=== PATIENT | male | born 1940 | race American Indian/Alaskan Native ===

== ENCOUNTER 2022-01-18 10:20 | Inpatient (IN) | payer MEDICARE, OTHER ==
--- NOTE | 2022-01-18 11:21 | Emergency Department Report ---
ED General Adult HPI - General Chief complaint: Dyspnea/Respdistress Stated complaint: R1 Time Seen by Provider: 01/18/22 10:57 Source: EMS Mode of arrival: Stretcher Limitations: Other - History of Present Illness Initial comments: The patient presents to the emergency department with a chief complaint of shortness of breath that started this morning. Patient denies any chest pain or abdominal pain. Patient states that his shortness of breath is worse with movement. There is no oxygen use at home. Patient denies currently being on a diuretic but has used diuretics previously Severity scale (0 -10): 0 Consistency: constant Improves with: none Worsens with: none Associated Symptoms: denies other symptoms Treatments Prior to Arrival: none - Related Data Home Medications Medication Instructions Recorded Confirmed Last Taken raNITIdine HCL [Zantac 300 MG TAB] 300 mg PO BID 05/10/16 09/16/19 05/14/16 AtorvaSTATin [Lipitor] 40 mg PO QHS 09/16/19 09/16/19 Unknown Finasteride 5 mg PO DAILY 09/16/19 09/16/19 Unknown Insulin Regular, Human [Novolin R] 0 units SUB-Q BID 09/16/19 09/16/19 Unknown Losartan Potassium 100 mg PO DAILY 09/16/19 09/16/19 Unknown levETIRAcetam [Keppra TAB] 500 mg PO BID 09/16/19 09/16/19 Unknown Previous Rx's Medication Instructions Recorded Last Taken Type Aspirin [Aspirin BABY CHEW TAB] 81 mg PO QDAY #30 tab.chew 04/18/14 05/14/16 Rx Clopidogrel Bisulfate [Plavix] 75 mg PO QDAY #30 tablet 04/18/14 05/14/16 Rx Amiodarone [Cordarone 200 MG TAB] 100 mg PO BID #60 tablet 09/26/19 Unknown Rx Insulin NPH/Regular [NovoLIN 70/30] 22 unit SUB-Q BIDDIAB #2 vial 09/26/19 Unknown Rx Metoprolol [Lopressor TAB] 12.5 mg PO Q8HR #60 tablet 09/26/19 Unknown Rx Allergies Allergy/AdvReac Type Severity Reaction Status Date / Time Penicillins Allergy Swelling Verified 09/16/19 17:16 ED Review of Systems ROS: Stated complaint: R1 Other details as noted in HPI Constitutional: denies: chills, fever Eyes: denies: eye pain, eye discharge, vision change ENT: denies: ear pain, throat pain Respiratory: shortness of breath. denies: cough, wheezing Cardiovascular: denies: chest pain, palpitations Endocrine: no symptoms reported Gastrointestinal: denies: abdominal pain, nausea, diarrhea Genitourinary: denies: urgency, dysuria Musculoskeletal: denies: back pain, joint swelling, arthralgia Skin: denies: rash, lesions Neurological: denies: headache, weakness, paresthesias Psychiatric: denies: anxiety, depression Hematological/Lymphatic: denies: easy bleeding, easy bruising ED Past Medical Hx - Past Medical History Hx Hypertension: Yes Hx CVA: Yes Hx Heart Attack/AMI: Yes Hx Congestive Heart Failure: Yes Hx Diabetes: Yes Hx GERD: Yes Hx Arthritis: Yes Hx Seizures: Yes Hx Psychiatric Treatment: Yes Additional medical history: CAD. hyperlipidemia - Surgical History Hx Coronary Stent: Yes - Social History Smoking Status: Former Smoker Substance Use Type: None - Medications Home Medications: Home Medications Medication Instructions Recorded Confirmed Last Taken Type Aspirin [Aspirin BABY CHEW TAB] 81 mg PO QDAY #30 tab.chew 04/18/14 09/16/19 05/14/16 Rx Clopidogrel Bisulfate [Plavix] 75 mg PO QDAY #30 tablet 04/18/14 09/16/19 05/14/16 Rx raNITIdine HCL [Zantac 300 MG TAB] 300 mg PO BID 05/10/16 09/16/19 05/14/16 Hist ory AtorvaSTATin [Lipitor] 40 mg PO QHS 09/16/19 09/16/19 Unknown History Finasteride 5 mg PO DAILY 09/16/19 09/16/19 Unknown History Insulin Regular, Human [Novolin R] 0 units SUB-Q BID 09/16/19 09/16/19 Unknown History Losartan Potassium 100 mg PO DAILY 09/16/19 09/16/19 Unknown History levETIRAcetam [Keppra TAB] 500 mg PO BID 09/16/19 09/16/19 Unknown History Amiodarone [Cordarone 200 MG TAB] 100 mg PO BID #60 tablet 09/26/19 Unknown Rx Insulin NPH/Regular [NovoLIN 70/30] 22 unit SUB-Q BIDDIAB #2 vial 09/26/19 Unknown Rx Metoprolol [Lopressor TAB] 12.5 mg PO Q8HR #60 tablet 09/26/19 Unknown Rx ED Physical Exam - General Limitations: Other General appearance: alert, in no apparent distress - Head Head exam: Present: atraumatic, normocephalic - Eye Eye exam: Present: normal appearance - ENT ENT exam: Present: mucous membranes moist - Neck Neck exam: Present: normal inspection - Respiratory Respiratory exam: Present: decreased breath sounds. Absent: respiratory distress - Cardiovascular Cardiovascular Exam: Present: regular rate, normal rhythm. Absent: systolic murmur, diastolic murmur, rubs, gallop - GI/Abdominal GI/Abdominal exam: Present: soft, normal bowel sounds. Absent: distended, tende rness - Rectal Rectal exam: Present: deferred - Extremities Exam Extremities exam: Present: other (Bilateral pitting edema) - Back Exam Back exam: Present: normal inspection - Neurological Exam Neurological exam: Present: alert, oriented X3 - Psychiatric Psychiatric exam: Present: normal affect, normal mood - Skin Skin exam: Present: warm, dry, intact, normal color. Absent: rash ED Course Vital Signs 01/18/22 01/18/22 01/18/22 10:31 11:02 12:08 Temperature 97.9 F 98.3 F Pulse Rate 79 52 L 59 L Respiratory 16 22 16 Rate Blood Pressure 150/100 143/68 139/57 [Left] O2 Sat by Pulse 100 98 98 Oximetry 01/18/22 15:49 Temperature Pulse Rate 55 L Respiratory 20 Rate Blood Pressure 133/64 [Left] O2 Sat by Pulse 99 Oximetry ED Medical Decision Making - Lab Data Result diagrams: 01/18/22 11:56 01/18/22 11:40 Lab Results 01/18/22 01/18/22 01/18/22 Range/Units 11:40 11:40 11:56 WBC 9.1 (4.5-11.0) K/mm3 RBC 4.86 (3.65-5.03) M/mm3 Hgb 13.7 (11.8-15.2) gm/dl Hct 42.7 (35.5-45.6) % MCV 88 (84-94) fl MCH 28 (28-32) pg MCHC 32 (32-34) % RDW 14.2 (13.2-15.2) % Plt Count 101 L (140-440) K/mm3 Lymph % (Auto) 16.5 (13.4-35.0) % [place] % (Auto) 13.1 H (0.0-7.3) % Eos % (Auto) 1.1 (0.0-4.3) % Baso % (Auto) 0.3 (0.0-1.8) % Lymph # (Auto) 1.5 (1.2-5.4) K/mm3 [place] # (Auto) 1.2 H (0.0-0.8) K/mm3 Eos # (Auto) 0.1 (0.0-0.4) K/mm3 Baso # (Auto) 0.0 (0.0-0.1) K/mm3 Add Manual Diff Complete Seg Neutrophils % 69.0 (40.0-70.0) % Seg Neutrophils # 6.3 (1.8-7.7) K/mm3 Sodium 139 (137-145) mmol/L Potassium 4.9 (3.6-5.0) mmol/L Chloride 105.0 (98-107) mmol/L Carbon Dioxide 21 L (22-30) mmol/L Anion Gap 18 mmol/L BUN 17 (9-20) mg/dL Creatinine 1.1 (0.8-1.3) mg/dL Estimated GFR > 60 ml/min BUN/Creatinine Ratio 15 % Glucose 225 H (75-100) mg/dL Lactic Acid (0.7-2.0) mmol/L Calcium 8.4 (8.4-10.2) mg/dL Magnesium 1.80 (1.7-2.3) mg/dL Total Bilirubin 1.20 (0.1-1.2) mg/dL AST 19 (5-40) units/L ALT 15 (7-56) units/L Alkaline Phosphatase 86 (35-129) units/L Troponin T < 0.010 (0.00-0.029) ng/mL NT-Pro-B Natriuret Pep 713.6 (0-900) pg/mL Total Protein 6.3 (6.3-8.2) g/dL Albumin 3.8 L (3.9-5) g/dL Albumin/Globulin Ratio 1.5 % 01/18/22 Range/Units 13:56 WBC (4.5-11.0) K/mm3 RBC (3.65-5.03) M/mm3 Hgb (11.8-15.2) gm/dl Hct (35.5-45.6) % MCV (84-94) fl MCH (28-32) pg MCHC (32-34) % RDW (13.2-15.2) % Plt Count (140-440) K/mm3 Lymph % (Auto) (13.4-35.0) % [place] % (Auto) (0.0-7.3) % Eos % (Auto) (0.0-4.3) % Baso % (Auto) (0.0-1.8) % Lymph # (Auto) (1.2-5.4) K/mm3 [place] # (Auto) (0.0-0.8) K/mm3 Eos # (Auto) (0.0-0.4) K/mm3 Baso # (Auto) (0.0-0.1) K/mm3 Add Manual Diff Seg Neutrophils % (40.0-70.0) % Seg Neutrophils # (1.8-7.7) K/mm3 Sodium (137-145) mmol/L Potassium (3.6-5.0) mmol/L Chloride (98-107) mmol/L Carbon Dioxide (22-30) mmol/L Anion Gap mmol/L BUN (9-20) mg/dL Creatinine (0.8-1.3) mg/dL Estimated GFR ml/min BUN/Creatinine Ratio % Glucose (75-100) mg/dL Lactic Acid 1.10 (0.7-2.0) mmol/L Calcium (8.4-10.2) mg/dL Magnesium (1.7-2.3) mg/dL Total Bilirubin (0.1-1.2) mg/dL AST (5-40) units/L ALT (7-56) units/L Alkaline Phosphatase (35-129) units/L Troponin T (0.00-0.029) ng/mL NT-Pro-B Natriuret Pep (0-900) pg/mL Total Protein (6.3-8.2) g/dL Albumin (3.9-5) g/dL Albumin/Globulin Ratio % - EKG Data -: EKG Interpreted by Me - EKG Data 01/18/22 16:34 Poor quality EKG with difficult to find isoelectric point. No ST elevation QTC 419 - Medical Decision Making Initially was not discovered that the patient has been admitted or seen at a hospital within the last 90 days thus Levaquin was only ordered for his pneumonia. After discovering that the patient had been in a medical facility within the last 90 days vancomycin was added Critical care attestation.: If time is entered above; I have spent that time in minutes in the direct care of this critically ill patient, excluding procedure time. ED Disposition Clinical Impression: Pneumonia Disposition: ADMITTED INPATIENT Is pt being admited?: Yes Does the pt Need Aspirin: No Condition: Fair Instructions: Bacterial Pneumonia (ED) Time of Disposition: 16:35
--- NOTE | 2022-01-18 11:59 | XRay Report ---
CHEST 1 VIEW 01/18/2022 10:47 AM INDICATION / CLINICAL INFORMATION: sob. COMPARISON: None available. FINDINGS: SUPPORT DEVICES: None. HEART / MEDIASTINUM: No significant abnormality. LUNGS / PLEURA: Relatively dense infiltrate throughout the right mid/lower zone. Probable small parap neumonic effusion. No pneumothorax. ADDITIONAL FINDINGS: No significant additional findings. IMPRESSION: Large right-sided pneumonia with probable parapneumonic effusion. Recommend follow-up to clearing. Signer Name: James Bonilla MD Signed: 01/18/2022 11:55 AM Workstation Name: [employer]
[2022-01-18 12:24] LABS: Alanine Aminotransferase 15 units/L (7-56); Albumin 3.8 g/dL (3.9-5); BUN/Creatinine Ratio 15; Blood Urea Nitrogen 17 mg/dL (9-20); Calcium 8.4 mg/dL (8.4-10.2); Hemolysis Index 45
[2022-01-18 12:48] LABS: Hematocrit 42.7 % (35.5-45.6); Hemoglobin 13.7 gm/dl (11.8-15.2); Mean Corpuscular HGB Conc 32 % (32-34); Mean Corpuscular Volume 88 fl (84-94); Red Blood Count 4.86 M/mm3 (3.65-5.03); Red Cell Distribution Width 14.2 % (13.2-15.2)
[2022-01-18] MEDS ORDERED: AZITHROMYCIN/NS 500 MG/250 ML 500 MG/250 ML BAG IV ONE (14:00)
[2022-01-18 14:37] LABS: Platelet Count 101 K/mm3 (140-440)
[2022-01-18 14:38] LABS: Basophils % (Auto) 0.3 % (0.0-1.8); Eosinophils % (Auto) 1.1 % (0.0-4.3); Lymphocytes # (Auto) 1.5 K/mm3 (1.2-5.4); Lymphocytes % (Auto) 16.5 % (13.4-35.0); Monocytes # (Auto) 1.2 K/mm3 (0.0-0.8); Monocytes % (Auto) 13.1 % (0.0-7.3)
[2022-01-18 14:39] LABS: Eosinophils # (Auto) 0.1 K/mm3 (0.0-0.4)
--- NOTE | 2022-01-18 15:53 | Cat Scan Report ---
CT chest without contrast INDICATION : pneumonia. TECHNIQUE: Axial imaging performed through the chest without the use of intravenous contrast. All C T scans at this location are performed using CT dose reduction for ALARA by means of automated exposu re control. COMPARISON: Chest x-ray from today FINDINGS: Moderate patchy consolidation throughout the right lung with moderate-sized bilateral laye ring pleural effusions and also mild bibasilar compressive atelectasis. Normal heart size. Mild coronary artery calcification. A few [place] mediastinal/hilar lymph nodes are present with no pathologic adenopathy. Limited imaging of the upper abdomen shows nothing acute. There are degenerative changes in the spine with nothing acute. IMPRESSION: Moderate patchy airspace disease throughout the right lung suggesting pneumonia with mode rate-sized bilateral layering pleural effusions. Signer Name: Vitor Mccain MD Signed: 01/18/2022 3:49 PM Workstation Name: [email or web address]
[2022-01-18] MEDS ORDERED: VANCOMYCIN/NS 1 GM/250 ML 1 GM/250 ML BAG IV ONE (16:06)
[2022-01-18] MEDS ORDERED: ACETAMINOPHEN 325 MG TAB PO PRN ×2 (16:36→19:30)
[2022-01-18] MEDS ORDERED: ONDANSETRON 4 MG/2 ML INJ IV PRN ×2 (16:36→19:30)
[2022-01-18] MEDS ORDERED: MORPHINE 2 MG/1 ML INJ IV PRN (16:36)
--- NOTE | 2022-01-18 19:15 | History and Physical Report ---
History of Present Illness Date of examination: 01/18/22 Date of admission: 01/18/2022 Chief complaint: Shortness of breath since a.m. History of present illness: 81-year-old -[place] male with history of hypertension, insulin- dependent diabetes, seizure disorder per lipidemia comes in and for increasing shortness of breath since a.m. Also cough productive of mucoid sputum. Low- grade fever present. Patient is not on oxygen at home. Oxygen saturations were low in the emergency room and the high 80s. Initially. Improved with nasal cannula oxygen. - Past Medical History --Hypertension: Yes --CVA: Yes --Heart Attack/AMI: Yes --Congestive Heart Failure: Yes --Diabetes: Yes --GERD: Yes --Arthritis: Yes --Seizures: Yes --Psychiatric Treatment: Yes --CAD. hyperlipidemia - Surgical History --Coronary Stent: Yes - Social History --Smoking Status: Former Smoker --Substance Use Type: None Family history --Htn - Medications --Home Medications: Home Medications Medication Instructions Recorded Confirmed Last Taken Type Aspirin [Aspirin BABY CHEW TAB] 81 mg PO QDAY #30 tab.chew 04/18/14 09/16/19 05/14/16 Rx Clopidogrel Bisulfate [Plavix] 75 mg PO QDAY #30 tablet 04/18/14 09/16/19 05/14/16 Rx raNITIdine HCL [Zantac 300 MG TAB] 300 mg PO BID 05/10/16 09/16/19 05/14/16 History AtorvaSTATin [Lipitor] 40 mg PO QHS 09/16/19 09/16/19 Unknown History Finasteride 5 mg PO DAILY 09/16/19 09/16/19 Unknown History Insulin Regular, Human [Novolin R] 0 units SUB-Q BID 09/16/19 09/16/19 Unknown History Losartan Potassium 100 mg PO DAILY 09/16/19 09/16/19 Unknown History levETIRAcetam [Keppra TAB] 500 mg PO BID 09/16/19 09/16/19 Unknown History Amiodarone [Cordarone 200 MG TAB] 100 mg PO BID #60 tablet 09/26/19 Unknown Rx Insulin NPH/Regular [NovoLIN 70/30] 22 unit SUB-Q BIDDIAB #2 vial 09/26/19 Unknown Rx Metoprolol [Lopressor TAB] 12.5 mg PO Q8HR #60 tablet 09/26/19 Unknown Rx Review of Systems ROS: Stated complaint: R1 Other details as noted in HPI Constitutional: denies: chills, fever Eyes: denies: eye pain, eye discharge, vision change ENT: denies: ear pain, throat pain Respiratory: shortness of breath. denies: cough, wheezing Cardiovascular: denies: chest pain, palpitations Endocrine: no symptoms reported Gastrointestinal: denies: abdominal pain, nausea, diarrhea Genitourinary: denies: urgency, dysuria Musculoskeletal: denies: back pain, joint swelling, arthralgia Skin: denies: rash, lesions Neurological: denies: headache, weakness, paresthesias Psychiatric: denies: anxiety, depression Hematological/Lymphatic: denies: easy bleeding, easy bruising Medications and Allergies Allergies Allergy/AdvReac Type Severity Reaction Status Date / Time Penicillins Allergy Swelling Verified 09/16/19 17:16 Home Medications Medication Instructions Recorded Confirmed Last Taken Type Aspirin [Aspirin BABY CHEW TAB] 81 mg PO QDAY #30 tab.chew 04/18/14 09/16/19 05/14/16 Rx Clopidogrel Bisulfate [Plavix] 75 mg PO QDAY #30 tablet 04/18/14 09/16/19 05/14/16 Rx raNITIdine HCL [Zantac 300 MG TAB] 300 mg PO BID 05/10/16 09/16/19 05/14/16 History AtorvaSTATin [Lipitor] 40 mg PO QHS 09/16/19 09/16/19 Unknown History Finasteride 5 mg PO DAILY 09/16/19 09/16/19 Unknown History Insulin Regular, Human [Novolin R] 0 units SUB-Q BID 09/16/19 09/16/19 Unknown History Losartan Potassium 100 mg PO DAILY 09/16/19 09/16/19 Unknown History levETIRAcetam [Keppra TAB] 500 mg PO BID 09/16/19 09/16/19 Unknown History Amiodarone [Cordarone 200 MG TAB] 100 mg PO BID #60 tablet 09/26/19 Unknown Rx Insulin NPH/Regular [NovoLIN 70/30] 22 unit SUB-Q BIDDIAB #2 vial 09/26/19 Unknown Rx Metoprolol [Lopressor TAB] 12.5 mg PO Q8HR #60 tablet 09/26/19 Unknown Rx Active Meds: Active Medications Acetaminophen (Acetaminophen 325 Mg Tab) 650 mg PO Q4H PRN PRN Reason: Pain MILD(1-3)/Fever >100.5/ARMENTA Morphine Sulfate (Morphine 2 Mg/1 Ml Inj) 2 mg IV Q4H PRN PRN Reason: Pain, Moderate (4-6) Ondansetron HCl (Ondansetron 4 Mg/2 Ml Inj) 4 mg IV Q8H PRN PRN Reason: Nausea And Vomiting Sodium Chloride (Sodium Chloride 0.9% 10 Ml Flush Syringe) 10 ml IV BID [place] Sodium Chloride (Sodium Chloride 0.9% 10 Ml Flush Syringe) 10 ml IV PRN PRN PRN Reason: LINE FLUSH Exam - Constitutional Vitals: Temp Pulse Resp BP Pulse Ox 98.3 F 80 14 151/70 98 01/18/22 11:02 01/18/22 17:26 01/18/22 17:26 01/18/22 17:26 01/18/22 17:26 General appearance: Present: mild distress, well-nourished - EENT Eyes: Present: PERRL ENT: hearing intact, clear oral mucosa - Neck Neck: Present: supple, normal ROM - Respiratory Respiratory effort: normal Respiratory: bilateral: CTA, rales, rhonchi - Cardiovascular Heart rate: 70 Rhythm: regular Heart Sounds: Present: S1 & S2. Absent: rub, click - Extremities Extremities: pulses symmetrical, No edema Peripheral Pulses: within normal limits - Abdominal General gastrointestinal: Present: soft, non-tender, non-distended, normal bowel sounds Male genitourinary: Present: normal - Integumentary Integumentary: Present: clear, warm, dry - Musculoskeletal Musculoskeletal: gait normal, strength equal bilaterally - Psychiatric Psychiatric: appropriate mood/affect, intact judgment & insight - Neurologic Neurologic: CNII-XII intact, moves all extremities HEART Score - HEART Score History: Moderately suspicious Age: > 65 Risk factors: > 3 risk factors or hx of atherosclerotic disease Troponin: Troponin T < 0.010 ng/mL (0.00-0.029) 01/18/22 11:40 Troponin: < normal limit - Critical Actions Critical Actions: 0-3 pts:0.9-1.7%risk of adverse cardiac event.Candidate for discharge Results - Labs CBC & Chem 7: 01/19/22 05:16 01/19/22 05:16 Labs: Laboratory Last Values WBC 9.1 K/mm3 (4.5-11.0) 01/18/22 11:56 RBC 4.86 M/mm3 (3.65-5.03) 01/18/22 11:56 Hgb 13.7 gm/dl (11.8-15.2) 01/18/22 11:56 Hct 42.7 % (35.5-45.6) 01/18/22 11:56 MCV 88 fl (84-94) 01/18/22 11:56 MCH 28 pg (28-32) 01/18/22 11:56 MCHC 32 % (32-34) 01/18/22 11:56 RDW 14.2 % (13.2-15.2) 01/18/22 11:56 Plt Count 101 K/mm3 (140-440) L 01/18/22 11:56 Lymph % (Auto) 16.5 % (13.4-35.0) 01/18/22 11:56 [place] % (Auto) 13.1 % (0.0-7.3) H 01/18/22 11:56 Eos % (Auto) 1.1 % (0.0-4.3) 01/18/22 11:56 Baso % (Auto) 0.3 % (0.0-1.8) 01/18/22 11:56 Lymph # (Auto) 1.5 K/mm3 (1.2-5.4) 01/18/22 11:56 [place] # (Auto) 1.2 K/mm3 (0.0-0.8) H 01/18/22 11:56 Eos # (Auto) 0.1 K/mm3 (0.0-0.4) 01/18/22 11:56 Baso # (Auto) 0.0 K/mm3 (0.0-0.1) 01/18/22 11:56 Add Manual Diff Complete 01/18/22 11:56 Seg Neutrophils % 69.0 % (40.0-70.0) 01/18/22 11:56 Seg Neutrophils # 6.3 K/mm3 (1.8-7.7) 01/18/22 11:56 Sodium 139 mmol/L (137-145) 01/18/22 11:40 Potassium 4.9 mmol/L (3.6-5.0) 01/18/22 11:40 Chloride 105.0 mmol/L (98-107) 01/18/22 11:40 Carbon Dioxide 21 mmol/L (22-30) L 01/18/22 11:40 Anion Gap 18 mmol/L 01/18/22 11:40 BUN 17 mg/dL (9-20) 01/18/22 11:40 Creatinine 1.1 mg/dL (0.8-1.3) 01/18/22 11:40 Estimated GFR > 60 ml/min 01/18/22 11:40 BUN/Creatinine Ratio 15 % 01/18/22 11:40 Glucose 225 mg/dL (75-100) H 01/18/22 11:40 Lactic Acid 1.10 mmol/L (0.7-2.0) 01/18/22 13:56 Calcium 8.4 mg/dL (8.4-10.2) 01/18/22 11:40 Magnesium 1.80 mg/dL (1.7-2.3) 01/18/22 11:40 Total Bilirubin 1.20 mg/dL (0.1-1.2) 01/18/22 11:40 AST 19 units/L (5-40) 01/18/22 11:40 ALT 15 units/L (7-56) 01/18/22 11:40 Alkaline Phosphatase 86 units/L (35-129) 01/18/22 11:40 Troponin T < 0.010 ng/mL (0.00-0.029) 01/18/22 11:40 NT-Pro-B Natriuret Pep 713.6 pg/mL (0-900) 01/18/22 11:40 Total Protein 6.3 g/dL (6.3-8.2) 01/18/22 11:40 Albumin 3.8 g/dL (3.9-5) L 01/18/22 11:40 Albumin/Globulin Ratio 1.5 % 01/18/22 11:40 Short CBC 01/18/22 01/19/22 Range/Units 11:56 05:16 WBC 9.1 7.6 (4.5-11.0) K/mm3 Hgb 13.7 13.5 (11.8-15.2) gm/dl Hct 42.7 41.2 (35.5-45.6) % Plt Count 101 L 112 L (140-440) K/mm3 BMP 01/18/22 01/19/22 11:40 05:16 Sodium 139 137 Potassium 4.9 4.8 Chloride 105.0 103.8 Carbon Dioxide 21 L 16 L BUN 17 17 Creatinine 1.1 1.0 Glucose 225 H 243 H Calcium 8.4 8.5 Cardiac Enzymes 01/18/22 01/18/22 Range/Units 11:40 19:08 Troponin T < 0.010 < 0.010 (0.00-0.029) ng/mL Liver Function 01/18/22 01/19/22 Range/Units 11:40 05:16 Total Bilirubin 1.20 1.00 (0.1-1.2) mg/dL AST 19 16 (5-40) units/L ALT 15 14 (7-56) units/L Alkaline Phosphatase 86 90 (35-129) units/L Albumin 3.8 L 3.5 L (3.9-5) g/dL Microbiology: Microbiology 01/18/22 13:56 Peripheral/Venous Blood Culture - Preliminary Culture in Progress 01/18/22 13:56 Peripheral/Venous Blood Culture - Preliminary Culture in Progress - Imaging and Cardiology EKG: report reviewed Chest x-ray: report reviewed Imaging and Cardiology: Chest x-ray Large right-sided pneumonia with probable parapneumonic effusion Recommend follow-up clearing Assessment and Plan Advance Directives: Yes (Full code) VTE prophylaxis?: Chemical Plan of care discussed with patient/family: Yes - Patient Problems (1) Acute respiratory failure with hypoxia Current Visit: Yes Status: Acute Plan to address problem: Patient was hypoxic at the time of admission to the emergency room Patient improved with nasal cannula oxygen Continue oxygen and titrate (2) Right lower lobe pneumonia Current Visit: Yes Status: Acute Plan to address problem: Possible aspiration versus community-acquired pneumonia IV ceftriaxone and IV Zithromax to cover atypicals. DuoNebs as needed. Pulmonary consult requested. (3) IDDM (insulin dependent diabetes mellitus) Current Visit: Yes Status: Chronic Plan to address problem: Continue insulin and coverage. (4) Hypertension Current Visit: No Status: Chronic Qualifiers: Hypertension type: primary hypertension Qualified Code(s): I10 - Essential (primary) hypertension Plan to address problem: Continue home antihypertensives and adjust medications (5) Seizure disorder Current Visit: Yes Status: Chronic Plan to address problem: Continue Keppra (6) BPH (benign prostatic hyperplasia) Current Visit: Yes Status: Chronic Qualifiers: Lower urinary tract symptom presence: symptoms present Plan to address problem: Continue finasteride (7) Malnutrition Current Visit: Yes Status: Chronic Qualifiers: Malnutrition type: protein-calorie malnutrition Protein-calorie malnutrition severity: mild Qualified Code(s): E44.1 - Mild protein-calorie malnutrition Plan to address problem: Dietary supplements requested (8) DVT prophylaxis Current Visit: Yes Status: Acute Plan to address problem: On heparin and GI prophylaxis (9) Advance care planning Current Visit: Yes Status: Acute Plan to address problem: Disease education conducted, care plan discussed, diagnosis discussed and prognosis discussed. Patient acknowledged understanding with care plan. +30 minutes. Patient is full code.
[2022-01-18] MEDS ORDERED: SODIUM CHLORIDE 0.9% 1000 ML 1,000 ML IV SCH (19:30)
[2022-01-18] MEDS ORDERED: METOCLOPRAMIDE 10 MG/2 ML INJ IV PRN (19:33)
[2022-01-18] MEDS ORDERED: oxyCODONE /ACETAMINOPHEN 5-325MG TAB PO PRN (19:33)
[2022-01-18] MEDS ORDERED: AZITHROMYCIN/NS 500 MG/250 ML 500 MG/250 ML BAG IV SCH (20:00)
[2022-01-18] MEDS ORDERED: IPRATROPIUM/ALBUTEROL SULFATE 3 ML AMPUL.NEB IH PRN (20:03)
[2022-01-18] MEDS: cefTRIAXone/NS 2 GM/100 ML 2 GM/100 ML BAG IV SCH (20:36)
[2022-01-18] MEDS: ASPIRIN 81 MG TAB CHEW PO SCH (20:47)
[2022-01-18] MEDS: CLOPIDOGREL 75 MG TAB PO SCH (20:47)
[2022-01-18] MEDS ORDERED: FAMOTIDINE 20 MG/2 ML INJ IV SCH (22:00)
[2022-01-18] MEDS ORDERED: RANITIDINE HCL 300 MG PO SCH (22:00)
[2022-01-18] MEDS ORDERED: INSULIN REGULAR, HUMAN 100 UNITS/1 ML SUB-Q SCH (22:00)
[2022-01-18] MEDS: methylPREDNISolone Sod Succinate 125 MG/2 ML INJ IV SCH (22:58)
[2022-01-19 06:01] LABS: Hematocrit 41.2 % (35.5-45.6); Hemoglobin 13.5 gm/dl (11.8-15.2); Mean Corpuscular HGB Conc 33 % (32-34); Mean Corpuscular Volume 88 fl (84-94); Platelet Count 112 K/mm3 (140-440)
[2022-01-19 06:11] LABS: Alanine Aminotransferase 14 units/L (7-56); Albumin 3.5 g/dL (3.9-5); BUN/Creatinine Ratio 17; Blood Urea Nitrogen 17 mg/dL (9-20); Calcium 8.5 mg/dL (8.4-10.2); Hemolysis Index 13
[2022-01-19 06:59] LABS: Basophils % (Manual) 0 % (0.0-1.8); Eosinophils % (Manual) 0 % (0.0-4.3); Monocytes % (Manual) 0 % (0.0-7.3); Platelet Estimate Consistent w Auto; Total Cells Counted 100
[2022-01-19] MEDS ORDERED: IPRATROPIUM/ALBUTEROL SULFATE 3 ML AMPUL.NEB IH SCH (08:00)
[2022-01-19] MEDS: METOPROLOL TARTRATE 25 MG TAB PO SCH ×4 (08:36→21:55)
[2022-01-19] MEDS: methylPREDNISolone Sod Succinate 125 MG/2 ML INJ IV SCH (08:43)
--- NOTE | 2022-01-19 09:54 | Consultation ---
History of Present Illness Consult date: 01/19/22 Requesting physician: NANETTE FLOWERS Reason for consult: hypoxemia, abnormal CXR/CT History of present illness: 81 y/o male presents with several days of worsening shortness of breath. Per patient has nonproductive cough. No sick contacts. No fever, no shaking chills. Used to smoke 30 years ago. Never been hospitalized for breathing. Has heart issues and has 3-4 + edema. Was on a water pill but the doctors stop ped it per the patient. Remainder of the review is negative. Medications and Allergies Allergies Allergy/AdvReac Type Severity Reaction Status Date / Time Penicillins Allergy Swelling Verified 09/16/19 17:16 Home Medications Medication Instructions Recorded Confirmed Last Taken Type Aspirin [Aspirin BABY CHEW TAB] 81 mg PO QDAY #30 tab.chew 04/18/14 09/16/19 05/14/16 Rx Clopidogrel Bisulfate [Plavix] 75 mg PO QDAY #30 tablet 04/18/14 09/16/19 05/14/16 Rx raNITIdine HCL [Zantac 300 MG TAB] 300 mg PO BID 05/10/16 09/16/19 05/14/16 History AtorvaSTATin [Lipitor] 40 mg PO QHS 09/16/19 09/16/19 Unknown History Finasteride 5 mg PO DAILY 09/16/19 09/16/19 Unknown History Insulin Regular, Human [Novolin R] 0 units SUB-Q BID 09/16/19 09/16/19 Unknown History Losartan Potassium 100 mg PO DAILY 09/16/19 09/16/19 Unknown History levETIRAcetam [Keppra TAB] 500 mg PO BID 09/16/19 09/16/19 Unknown History Amiodarone [Cordarone 200 MG TAB] 100 mg PO BID #60 tablet 09/26/19 Unknown Rx Insulin NPH/Regular [NovoLIN 70/30] 22 unit SUB-Q BIDDIAB #2 vial 09/26/19 Unknown Rx Metoprolol [Lopressor TAB] 12.5 mg PO Q8HR #60 tablet 09/26/19 Unknown Rx Active Meds: Active Medications Acetaminophen (Acetaminophen 325 Mg Tab) 650 mg PO Q4H PRN PRN Reason: Pain MILD(1-3)/Fever >100.5/ARMENTA Albuterol/Ipratropium (Ipratropium/Albuterol Sulfate 3 Ml Ampul.Neb) 1 ampul IH QIDRT [facility] Last Admin: 01/19/22 09:27 Dose: 1 ampul Amiodarone HCl (Amiodarone 200 Mg Tab) 100 mg PO BID [facility] Aspirin (Aspirin 81 Mg Tab Chew) 81 mg PO QDAY [facility] Last Admin: 01/18/22 20:47 Dose: 81 mg Atorvastatin Calcium (Atorvastatin 40 Mg Tab) 40 mg PO QHS [facility] Last Admin: 01/18/22 22:57 Dose: 40 mg Azithromycin (Azithromycin 250 Mg Tab) 500 mg PO QHS [facility] Stop: 01/22/22 22:01 Clopidogrel Bisulfate (Clopidogrel 75 Mg Tab) 75 mg PO QDAY [facility] Last Admin: 01/18/22 20:47 Dose: 75 mg Famotidine (Famotidine 20 Mg Tab) 20 mg PO BID [facility] Finasteride (Finasteride 5 Mg Tab) 5 mg PO DAILY [facility] Sodium Chloride (Nacl 0.9% 1000 Ml) 1,000 mls @ 75 mls/hr IV DIRECT [facility] Stop: 01/19/22 10:00 Ceftriaxone Sodium (Rocephin/Ns 2 Gm/100 Ml) 2 gm in 100 mls @ 200 mls/hr IV Q24HR [facility]; Protocol Stop: 01/22/22 23:59 Last Admin: 01/18/22 20:36 Dose: 200 mls/hr Insulin Human Isoph/Insulin Regular (Insulin Nph/Regular 70/30 Inj) 22 unit SUB-Q BIDDIAB [facility] Insulin Human Regular (Insulin Regular, Human 100 Units/1 Ml) 0 units SUB-Q BIDAC [facility]; Protocol Losartan Potassium (Losartan 50 Mg Tab) 100 mg PO DAILY [facility] Methylprednisolone Sodium Succinate (Methylprednisolone Sod Succinate 125 Mg/2 Ml Inj) 40 mg IV Q8HR [facility] Last Admin: 01/19/22 08:43 Dose: 40 mg Metoclopramide HCl (Metoclopramide 10 Mg/2 Ml Inj) 10 mg IV Q6H PRN PRN Reason: Nausea And Vomiting Metoprolol Tartrate (Metoprolol Tartrate 25 Mg Tab) 12.5 mg PO Q8HR [facility] Last Admin: 01/19/22 08:36 Dose: 12.5 mg Morphine Sulfate (Morphine 2 Mg/1 Ml Inj) 2 mg IV Q4H PRN PRN Reason: Pain, Moderate (4-6) Ondansetron HCl (Ondansetron 4 Mg/2 Ml Inj) 4 mg IV Q8H PRN PRN Reason: Nausea And Vomiting Oxycodone/Acetaminophen (Oxycodone /Acetaminophen 5-325mg Tab) 1 tab PO Q6H PRN PRN Reason: Pain, Moderate (4-6) Sodium Chloride (Sodium Chloride 0.9% 10 Ml Flush Syringe) 10 ml IV BID [facility] Last Admin: 01/18/22 22:58 Dose: 10 ml Sodium Chloride (Sodium Chloride 0.9% 10 Ml Flush Syringe) 10 ml IV PRN PRN PRN Reason: LINE FLUSH Physical Examination Vital signs: Vital Signs Temp Pulse Resp BP Pulse Ox 97.9 F 79 16 150/100 100 01/18/22 10:31 01/18/22 10:31 01/18/22 10:31 01/18/22 10:31 01/18/22 10:31 General appearance: no acute distress, alert, other (obese) Eyes: non-icteric ENT: other (poor dentition) Neck: supple Effort: mildly labored Ascultation: Bilateral: diminished breath sounds Gastrointestinal: other (very distant) Results - Laboratory Findings CBC and BMP: 01/20/22 04:36 01/20/22 04:36 Abnormal lab findings: Abnormal Labs 01/18/22 01/18/22 01/19/22 11:40 11:56 05:16 Plt Count 101 L 112 L [place] % (Auto) 13.1 H [place] # (Auto) 1.2 H Seg Neuts % (Manual) 97.0 H Lymphocytes % (Manual) 3.0 L Lymphocytes # (Manual) 0.2 L Carbon Dioxide 21 L Glucose 225 H Albumin 3.8 L 01/19/22 05:16 Plt Count [place] % (Auto) [place] # (Auto) Seg Neuts % (Manual) Lymphocytes % (Manual) Lymphocytes # (Manual) Carbon Dioxide 16 L Glucose 243 H Albumin 3.5 L - Diagnostic Findings Chest x-ray: image reviewed (right sided airspace disease with small right sided effusion.) CT scan - chest: image reviewed (Consistent with CXR, mild cardiomegaly.) Assessment and Plan 81 y/o male with acute respiratory failure secondary to abnormal CXR consistent with right sided mid lung airspace disease, concerning for pneumonia. Interesting case. no white count, no fever. Differential was normal but was hypoxic on admission per report. All sats in computer above 88%. Started on CAP coverage and steroids. Suggest the following. 1. no prior history of lung disease. Former smoker per H and P. Agree with abx but will hold off steroids for right now. Need to send sputum for culture as well as cyotology. If not able to produce anymore may need to consider bronchoscopy. Incentive boone to bedside. Please consider US guided thoracentesis of right pleural effusion and send for the following: LDH, PROTEIN, Cell count with diff, afb, fungal, glucose, culture as well as cytology. Will continue to follow.
[2022-01-19] MEDS ORDERED: ALBUTEROL 2.5 MG/3 ML NEBU IH PRN (09:58)
[2022-01-19] MEDS: AMIODARONE 200 MG TAB PO SCH ×3 (12:02→21:53)
[2022-01-19] MEDS: cefTRIAXone/NS 2 GM/100 ML 2 GM/100 ML BAG IV SCH (12:02)
[2022-01-19] MEDS: LOSARTAN 50 MG TAB PO SCH ×2 (12:02→12:04)
[2022-01-19] MEDS: INSULIN NPH/REGULAR 70/30 INJ SUB-Q SCH ×2 (12:02→17:25)
[2022-01-19] MEDS: FINASTERIDE 5 MG TAB PO SCH ×2 (12:02→12:04)
[2022-01-19] MEDS: ASPIRIN 81 MG TAB CHEW PO SCH (12:03)
[2022-01-19] MEDS: CLOPIDOGREL 75 MG TAB PO SCH (12:03)
[2022-01-19] MEDS: INSULIN REGULAR, HUMAN 100 UNITS/1 ML SUB-Q SCH ×2 (12:03→17:28)
[2022-01-19] MEDS: FAMOTIDINE 20 MG TAB PO SCH ×2 (12:03→21:53)
--- NOTE | 2022-01-19 13:59 | Electrocardiograph Report ---
[facility] Test Date: 2022-01-18 Test Time: 12:56:22 Pat Name: CARLENE SANCHEZ Department: Room: A376 Gender: M Analysis Tester: BUBBA : 1940 Requested By: SINDI SORTO Order Number: [id number] Reading MD: Jason Botello Measurements Intervals [place] Rate: 58 P: IA: QRS: -30 QRSD: 97 T: -5 QT: 419 QTc: 414 Interpretive Statements Very poor quality ECG Sinus bradycardia Left ventricular per trophy Poor R wave progression Nonspecific T wave abnormality No previous ECG available for comparison Electronically Signed On 01-19-2022 13:59:40 EDT by Jason Botello
--- NOTE | 2022-01-19 19:51 | Progress Note ---
Assessment and Plan - Patient Problems (1) Acute respiratory failure with hypoxia Current Visit: Yes Status: Acute Plan to address problem: Patient was hypoxic at the time of admission to the emergency room Patient improved with nasal cannula oxygen Continue oxygen and titrate (2) Right lower lobe pneumonia Current Visit: Yes Status: Acute Plan to address problem: Possible aspiration versus community-acquired pneumonia IV ceftriaxone and IV Zithromax to cover atypicals. DuoNebs as needed. Pulmonary consult appreciated Pleural fluid for cytology Bronchoscopy if necessary (3) IDDM (insulin dependent diabetes mellitus) Current Visit: Yes Status: Chronic Plan to address problem: Continue insulin and coverage. (4) Hypertension Current Visit: No Status: Chronic Qualifiers: Hypertension type: primary hypertension Qualified Code(s): I10 - Essential (primary) hypertension Plan to address problem: Continue home antihypertensives and adjust medications (5) Seizure disorder Current Visit: Yes Status: Chronic Plan to address problem: Continue Keppra (6) BPH (benign prostatic hyperplasia) Current Visit: Yes Status: Chronic Qualifiers: Lower urinary tract symptom presence: symptoms present Plan to address problem: Continue finasteride (7) Malnutrition Current Visit: Yes Status: Chronic Qualifiers: Malnutrition type: protein-calorie malnutrition Protein-calorie malnutrition severity: mild Qualified Code(s): E44.1 - Mild protein-calorie malnutrition Plan to address problem: Dietary supplements requested (8) DVT prophylaxis Current Visit: Yes Status: Acute Plan to address problem: On heparin and GI prophylaxis (9) Advance care planning Current Visit: Yes Status: Acute Plan to address problem: Disease education conducted, care plan discussed, diagnosis discussed and prognosis discussed. Patient acknowledged understanding with care plan. +30 minutes. Patient is full code. Subjective Date of service: 01/19/22 Principal diagnosis: Acute respiratory failure with hypoxia, right lower lobe pneumonia Interval history: 81-year-old -[place] male with history of hypertension, insulin- dependent diabetes, seizure disorder per lipidemia comes in and for increasing shortness of breath since a.m. Also cough productive of mucoid sputum. Low- grade fever present. Patient is not on oxygen at home. Oxygen saturations were low in the emergency room and the high 80s. Initially. Improved with nasal cannula oxygen. 01/19/2022 Shortness of breath present Pulmonary consult appreciated Objective - Constitutional Vitals: Vital Signs - 12hr 01/19/22 01/19/22 01/19/22 08:36 08:44 09:29 Temperature 98.9 F Pulse Rate 92 H 87 Pulse Rate [ 65 Anterior] Pulse Rate [ 68 Posterior] Respiratory 15 Rate Respiratory 18 Rate [Anterior] Respiratory 18 Rate [Posterior ] Blood Pressure 127/51 Blood Pressure 146/52 [Left] O2 Sat by Pulse 97 Oximetry General appearance: Present: no acute distress, well-nourished - EENT Eyes: PERRL, EOM intact ENT: hearing intact, clear oral mucosa Ears: bilateral: normal - Neck Neck: supple, normal ROM - Respiratory Respiratory effort: normal Respiratory: bilateral: CTA, rhonchi, wheezing - Breasts Breasts: normal - Cardiovascular Heart rate: 98 Rhythm: regular Heart Sounds: Present: S1 & S2. Absent: gallop, rub Extremities: pulses intact, No edema, normal color, Full ROM - Gastrointestinal General gastrointestinal: Present: soft, non-tender, non-distended, normal bowel sounds - Genitourinary Male genitourinary: normal - Integumentary Integumentary: clear, warm, dry - Musculoskeletal Musculoskeletal: 1, strength equal bilaterally - Neurologic Neurologic: moves all extremities - Psychiatric Psychiatric: memory intact, appropriate mood/affect, intact judgment & insight - Labs CBC & Chem 7: 01/19/22 05:16 01/19/22 05:16 Labs: Abnormal lab results 01/19/22 01/19/22 01/19/22 Range/Units 05:16 05:16 17:17 Plt Count 112 L (140-440) K/mm3 Seg Neuts % (Manual) 97.0 H (40.0-70.0) % Lymphocytes % (Manual) 3.0 L (13.4-35.0) % Lymphocytes # (Manual) 0.2 L (1.2-5.4) K/mm3 Carbon Dioxide 16 L (22-30) mmol/L Glucose 243 H (75-100) mg/dL POC Glucose 379 H (70-105) mg/dL Albumin 3.5 L (3.9-5) g/dL HEART Score - HEART Score Age: > 65 Risk factors: > 3 risk factors or hx of atherosclerotic disease Troponin: Troponin T < 0.010 ng/mL (0.00-0.029) 01/18/22 19:08 Troponin: < normal limit - Critical Actions Critical Actions: 0-3 pts:0.9-1.7%risk of adverse cardiac event.Candidate for discharge
[2022-01-19] MEDS: IPRATROPIUM/ALBUTEROL SULFATE 3 ML AMPUL.NEB IH SCH ×2 (20:53→23:25)
[2022-01-19] MEDS: AZITHROMYCIN 250 MG TAB PO SCH (21:54)
[2022-01-20 05:22] LABS: Basophils % (Auto) 0.1 % (0.0-1.8); Hemoglobin 11.3 gm/dl (11.8-15.2); Lymphocytes # (Auto) 0.6 K/mm3 (1.2-5.4); Lymphocytes % (Auto) 5.9 % (13.4-35.0); Mean Corpuscular HGB Conc 33 % (32-34); Mean Corpuscular Volume 87 fl (84-94); Monocytes # (Auto) 1.1 K/mm3 (0.0-0.8); Monocytes % (Auto) 10.6 % (0.0-7.3); Platelet Count 118 K/mm3 (140-440); Red Blood Count 3.91 M/mm3 (3.65-5.03); Red Cell Distribution Width 13.7 % (13.2-15.2)
[2022-01-20] MEDS: METOPROLOL TARTRATE 25 MG TAB PO SCH ×3 (05:30→21:14)
[2022-01-20 05:37] LABS: Alanine Aminotransferase 15 units/L (7-56); Albumin 3.5 g/dL (3.9-5); BUN/Creatinine Ratio 22; Blood Urea Nitrogen 28 mg/dL (9-20); Calcium 8.4 mg/dL (8.4-10.2); Hemolysis Index 5
[2022-01-20] MEDS: INSULIN NPH/REGULAR 70/30 INJ SUB-Q SCH ×2 (08:40→18:22)
[2022-01-20] MEDS: IPRATROPIUM/ALBUTEROL SULFATE 3 ML AMPUL.NEB IH SCH ×3 (08:55→20:25)
[2022-01-20] MEDS ORDERED: METOCLOPRAMIDE 10 MG/2 ML INJ IV PRN (11:00)
[2022-01-20] MEDS: INSULIN REGULAR, HUMAN 100 UNITS/1 ML SUB-Q SCH ×2 (11:09→18:21)
[2022-01-20] MEDS: AMIODARONE 200 MG TAB PO SCH ×2 (11:11→21:14)
[2022-01-20] MEDS: ASPIRIN 81 MG TAB CHEW PO SCH (11:11)
[2022-01-20] MEDS: LOSARTAN 50 MG TAB PO SCH (11:12)
[2022-01-20] MEDS: FAMOTIDINE 20 MG TAB PO SCH ×2 (11:13→21:14)
[2022-01-20] MEDS: FINASTERIDE 5 MG TAB PO SCH (11:13)
[2022-01-20] MEDS: CLOPIDOGREL 75 MG TAB PO SCH (11:13)
[2022-01-20] MEDS: cefTRIAXone/NS 2 GM/100 ML 2 GM/100 ML BAG IV SCH (11:15)
--- NOTE | 2022-01-20 15:42 | Progress Note ---
Assessment and Plan 81 y/o male with acute respiratory failure secondary to abnormal CXR consistent with right sided mid lung airspace disease, concerning for pneumonia. 01/20/22: Suggest echo, will order. Will also order US guided thoracentesis with labs. Repeat CXR post thora. Interesting case. no white count, no fever. Differential was normal but was hypoxic on admission per report. All sats in computer above 88%. Started on CAP coverage and steroids. Suggest the following. 1. no prior history of lung disease. Former smoker per H and P. Agree with abx but will hold off steroids for right now. Need to send sputum for culture as well as cyotology. If not able to produce anymore may need to consider bronchoscopy. Incentive boone to bedside. Please consider US guided thoracentesis of right pleural effusion and send for the following: LDH, PROTEIN, Cell count with diff, afb, fungal, glucose, culture as well as cytology. Will continue to follow. Subjective Date of service: 01/20/22 Principal diagnosis: Acute respiratory failure with hypoxia, right lower lobe pneumonia Interval history: Weaned to room air. Good sats. Feels better. Objective Vital Signs - 12hr 01/20/22 01/20/22 01/20/22 03:46 09:36 11:12 Temperature 98.0 F 98.4 F Pulse Rate 65 67 67 Pulse Rate [ Anterior] Pulse Rate [ Posterior] Respiratory 16 14 Rate Respiratory Rate [Anterior] Respiratory Rate [Posterior ] Blood Pressure 135/64 148/75 148/75 O2 Sat by Pulse 96 98 Oximetry 01/20/22 14:00 Temperature Pulse Rate Pulse Rate [ 58 L Anterior] Pulse Rate [ 57 L Posterior] Respiratory Rate Respiratory 18 Rate [Anterior] Respiratory 20 Rate [Posterior ] Blood Pressure O2 Sat by Pulse Oximetry Constitutional: no acute distress, alert, other (obese) Eyes: non-icteric ENT: other (poor dentition) Neck: supple Effort: mildly labored Ascultation: Bilateral: diminished breath sounds Gastrointestinal: other (very distant) CBC and BMP: 01/20/22 04:36 01/20/22 04:36 Abnormal lab findings: Abnormal Labs 01/18/22 01/18/22 01/19/22 11:40 11:56 05:16 Hgb Hct Plt Count 101 L 112 L Lymph % (Auto) [place] % (Auto) 13.1 H Lymph # (Auto) [place] # (Auto) 1.2 H Seg Neutrophils % Seg Neuts % (Manual) 97.0 H Lymphocytes % (Manual) 3.0 L Seg Neutrophils # Lymphocytes # (Manual) 0.2 L Carbon Dioxide 21 L BUN Glucose 225 H POC Glucose Total Protein Albumin 3.8 L 01/19/22 01/19/22 01/19/22 05:16 17:17 21:26 Hgb Hct Plt Count Lymph % (Auto) [place] % (Auto) Lymph # (Auto) [place] # (Auto) Seg Neutrophils % Seg Neuts % (Manual) Lymphocytes % (Manual) Seg Neutrophils # Lymphocytes # (Manual) Carbon Dioxide 16 L BUN Glucose 243 H POC Glucose 379 H 340 H Total Protein Albumin 3.5 L 01/20/22 01/20/22 01/20/22 04:36 04:36 07:38 Hgb 11.3 L Hct 34.0 L D Plt Count 118 L Lymph % (Auto) 5.9 L [place] % (Auto) 10.6 H Lymph # (Auto) 0.6 L [place] # (Auto) 1.1 H Seg Neutrophils % 83.4 H Seg Neuts % (Manual) Lymphocytes % (Manual) Seg Neutrophils # 8.5 H Lymphocytes # (Manual) Carbon Dioxide 21 L BUN 28 H Glucose 190 H POC Glucose 160 H Total Protein 5.6 L Albumin 3.5 L 01/20/22 12:08 Hgb Hct Plt Count Lymph % (Auto) [place] % (Auto) Lymph # (Auto) [place] # (Auto) Seg Neutrophils % Seg Neuts % (Manual) Lymphocytes % (Manual) Seg Neutrophils # Lymphocytes # (Manual) Carbon Dioxide BUN Glucose POC Glucose 217 H Total Protein Albumin
[2022-01-20] MEDS: AZITHROMYCIN 250 MG TAB PO SCH (21:13)
[2022-01-21 00:10] LABS: Alanine Aminotransferase 16 units/L (7-56); Albumin 3.1 g/dL (3.9-5)
[2022-01-21 00:16] LABS: Bilirubin,Direct < 0.2 mg/dL (0-0.2)
[2022-01-21] MEDS: METOPROLOL TARTRATE 25 MG TAB PO SCH ×3 (06:03→22:20)
--- NOTE | 2022-01-21 07:14 | Progress Note ---
Assessment and Plan - Patient Problems (1) Acute respiratory failure with hypoxia Current Visit: Yes Status: Acute Plan to address problem: Patient was hypoxic at the time of admission to the emergency room Patient improved with nasal cannula oxygen Continue oxygen and titrate (2) Right lower lobe pneumonia Current Visit: Yes Status: Acute Plan to address problem: Possible aspiration versus community-acquired pneumonia IV ceftriaxone and IV Zithromax to cover atypicals. DuoNebs as needed. Pulmonary consult appreciated Pleural fluid for cytology Bronchoscopy if necessary (3) IDDM (insulin dependent diabetes mellitus) Current Visit: Yes Status: Chronic Plan to address problem: Continue insulin and coverage. (4) Hypertension Current Visit: No Status: Chronic Qualifiers: Hypertension type: primary hypertension Qualified Code(s): I10 - Essential (primary) hypertension Plan to address problem: Continue home antihypertensives and adjust medications (5) Seizure disorder Current Visit: Yes Status: Chronic Plan to address problem: Continue Keppra (6) BPH (benign prostatic hyperplasia) Current Visit: Yes Status: Chronic Qualifiers: Lower urinary tract symptom presence: symptoms present Plan to address problem: Continue finasteride (7) Malnutrition Current Visit: Yes Status: Chronic Qualifiers: Malnutrition type: protein-calorie malnutrition Protein-calorie malnutrition severity: mild Qualified Code(s): E44.1 - Mild protein-calorie malnutrition Plan to address problem: Dietary supplements requested (8) DVT prophylaxis Current Visit: Yes Status: Acute Plan to address problem: On heparin and GI prophylaxis (9) Advance care planning Current Visit: Yes Status: Acute Plan to address problem: Disease education conducted, care plan discussed, diagnosis discussed and prognosis discussed. Patient acknowledged understanding with care plan. +30 minutes. Patient is full code. Subjective Date of service: 01/20/22 Principal diagnosis: Acute respiratory failure with hypoxia, right lower lobe pneumonia Interval history: 81-year-old -[place] male with history of hypertension, insulin- dependent diabetes, seizure disorder per lipidemia comes in and for increasing shortness of breath since a.m. Also cough productive of mucoid sputum. Low- grade fever present. Patient is not on oxygen at home. Oxygen saturations were low in the emergency room and the high 80s. Initially. Improved with nasal cannula oxygen. 01/19/2022 Shortness of breath present Pulmonary consult appreciated Objective - Constitutional Vitals: Vital Signs - 12hr 01/20/22 01/20/22 01/21/22 20:25 20:31 00:29 Temperature 98.4 F Pulse Rate 60 Pulse Rate [ 69 Anterior] Pulse Rate [ 67 Posterior] Respiratory 18 Rate Respiratory 18 Rate [Anterior] Respiratory 18 Rate [Posterior ] Blood Pressure 126/62 O2 Sat by Pulse 97 96 Oximetry General appearance: Present: no acute distress, well-nourished - EENT Eyes: PERRL, EOM intact ENT: hearing intact, clear oral mucosa Ears: bilateral: normal - Neck Neck: supple, normal ROM - Respiratory Respiratory effort: normal Respiratory: bilateral: CTA - Breasts Breasts: normal - Cardiovascular Rhythm: regular Heart Sounds: Present: S1 & S2. Absent: gallop, rub Extremities: pulses intact, No edema, normal color, Full ROM - Gastrointestinal General gastrointestinal: Present: soft, non-tender, non-distended, normal bowel sounds - Genitourinary Male genitourinary: normal - Integumentary Integumentary: clear, warm, dry - Musculoskeletal Musculoskeletal: 1, strength equal bilaterally - Neurologic Neurologic: moves all extremities - Psychiatric Psychiatric: memory intact, appropriate mood/affect, intact judgment & insight - Labs CBC & Chem 7: 01/20/22 04:36 01/20/22 04:36 Labs: Abnormal lab results 01/20/22 01/20/22 01/20/22 Range/Units 07:38 12:08 17:52 POC Glucose 160 H 217 H 214 H (70-105) mg/dL Lactate Dehydrogenase (91-180) units/L Total Protein (6.3-8.2) g/dL Albumin (3.9-5) g/dL 01/20/22 01/20/22 Range/Units 22:05 23:23 POC Glucose 213 H (70-105) mg/dL Lactate Dehydrogenase 241 H (91-180) units/L Total Protein 5.4 L (6.3-8.2) g/dL Albumin 3.1 L (3.9-5) g/dL HEART Score - HEART Score Age: > 65 Risk factors: > 3 risk factors or hx of atherosclerotic disease Troponin: Troponin T < 0.010 ng/mL (0.00-0.029) 01/18/22 19:08 Troponin: < normal limit - Critical Actions Critical Actions: 0-3 pts:0.9-1.7%risk of adverse cardiac event.Candidate for discharge
[2022-01-21] MEDS ORDERED: DEXTROSE 50% IN WATER (25GM) 50 ML SYRINGE IV ONE (07:50)
[2022-01-21] MEDS: INSULIN REGULAR, HUMAN 100 UNITS/1 ML SUB-Q SCH ×2 (08:03→19:06)
[2022-01-21] MEDS: INSULIN NPH/REGULAR 70/30 INJ SUB-Q SCH ×2 (08:10→19:06)
[2022-01-21] MEDS: IPRATROPIUM/ALBUTEROL SULFATE 3 ML AMPUL.NEB IH SCH ×3 (08:16→20:40)
[2022-01-21] MEDS: cefTRIAXone/NS 2 GM/100 ML 2 GM/100 ML BAG IV SCH (11:09)
[2022-01-21] MEDS: AMIODARONE 200 MG TAB PO SCH ×2 (11:14→22:20)
[2022-01-21] MEDS: LOSARTAN 50 MG TAB PO SCH (11:14)
[2022-01-21] MEDS: ASPIRIN 81 MG TAB CHEW PO SCH (11:16)
[2022-01-21] MEDS: CLOPIDOGREL 75 MG TAB PO SCH (11:16)
[2022-01-21] MEDS: FINASTERIDE 5 MG TAB PO SCH (11:16)
[2022-01-21] MEDS: FAMOTIDINE 20 MG TAB PO SCH ×2 (11:16→22:20)
--- NOTE | 2022-01-21 14:41 | Progress Note ---
Assessment and Plan 81 y/o male with acute respiratory failure secondary to abnormal CXR consistent with right sided mid lung airspace disease, concerning for pneumonia. 01/21/22: Hopeful thora can be done. Follow up echo 01/20/22: Suggest echo, will order. Will also order US guided thoracentesis with labs. Repeat CXR post thora. Interesting case. no white count, no fever. Differential was normal but was hypoxic on admission per report. All sats in computer above 88%. Started on CAP coverage and steroids. Suggest the following. 1. no prior history of lung disease. Former smoker per H and P. Agree with abx but will hold off steroids for right now. Need to send sputum for culture as well as cyotology. If not able to produce anymore may need to consider bronchoscopy. Incentive boone to bedside. Please consider US guided thoracentesis of right pleural effusion and send for the following: LDH, PROTEIN, Cell count with diff, afb, fungal, glucose, culture as well as cytology. Will continue to follow. Subjective Date of service: 01/21/22 Principal diagnosis: Acute respiratory failure with hypoxia, right lower lobe pneumonia Interval history: no acute events. thora not done. Ordered echo today. back on oxygen therapy. Objective Vital Signs - 12hr 01/21/22 01/21/22 01/21/22 06:31 08:19 11:14 Temperature 97.8 F Pulse Rate 55 L 78 Pulse Rate [ 83 Posterior] Respiratory 18 Rate Respiratory 20 Rate [Posterior ] Blood Pressure 138/66 O2 Sat by Pulse 98 Oximetry Constitutional: no acute distress, alert, other (obese) Eyes: non-icteric ENT: other (poor dentition) Neck: supple Effort: mildly labored Ascultation: Bilateral: diminished breath sounds Gastrointestinal: other (very distant) CBC and BMP: 01/20/22 04:36 01/20/22 04:36 Abnormal lab findings: Abnormal Labs 01/18/22 01/18/22 01/19/22 11:40 11:56 05:16 Hgb Hct Plt Count 101 L 112 L Lymph % (Auto) [place] % (Auto) 13.1 H Lymph # (Auto) [place] # (Auto) 1.2 H Seg Neutrophils % Seg Neuts % (Manual) 97.0 H Lymphocytes % (Manual) 3.0 L Seg Neutrophils # Lymphocytes # (Manual) 0.2 L Carbon Dioxide 21 L BUN Glucose 225 H POC Glucose Lactate Dehydrogenase Total Protein Albumin 3.8 L 01/19/22 01/19/22 01/19/22 05:16 17:17 21:26 Hgb Hct Plt Count Lymph % (Auto) [place] % (Auto) Lymph # (Auto) [place] # (Auto) Seg Neutrophils % Seg Neuts % (Manual) Lymphocytes % (Manual) Seg Neutrophils # Lymphocytes # (Manual) Carbon Dioxide 16 L BUN Glucose 243 H POC Glucose 379 H 340 H Lactate Dehydrogenase Total Protein Albumin 3.5 L 01/20/22 01/20/22 01/20/22 04:36 04:36 07:38 Hgb 11.3 L Hct 34.0 L D Plt Count 118 L Lymph % (Auto) 5.9 L [place] % (Auto) 10.6 H Lymph # (Auto) 0.6 L [place] # (Auto) 1.1 H Seg Neutrophils % 83.4 H Seg Neuts % (Manual) Lymphocytes % (Manual) Seg Neutrophils # 8.5 H Lymphocytes # (Manual) Carbon Dioxide 21 L BUN 28 H Glucose 190 H POC Glucose 160 H Lactate Dehydrogenase Total Protein 5.6 L Albumin 3.5 L 01/20/22 01/20/22 01/20/22 12:08 17:52 22:05 Hgb Hct Plt Count Lymph % (Auto) [place] % (Auto) Lymph # (Auto) [place] # (Auto) Seg Neutrophils % Seg Neuts % (Manual) Lymphocytes % (Manual) Seg Neutrophils # Lymphocytes # (Manual) Carbon Dioxide BUN Glucose POC Glucose 217 H 214 H 213 H Lactate Dehydrogenase Total Protein Albumin 01/20/22 01/21/22 23:23 07:42 Hgb Hct Plt Count Lymph % (Auto) [place] % (Auto) Lymph # (Auto) [place] # (Auto) Seg Neutrophils % Seg Neuts % (Manual) Lymphocytes % (Manual) Seg Neutrophils # Lymphocytes # (Manual) Carbon Dioxide BUN Glucose POC Glucose 51 L Lactate Dehydrogenase 241 H Total Protein 5.4 L Albumin 3.1 L
[2022-01-21] MEDS: AZITHROMYCIN 250 MG TAB PO SCH (22:20)
[2022-01-22] MEDS: METOPROLOL TARTRATE 25 MG TAB PO SCH ×3 (06:41→23:24)
[2022-01-22] MEDS: INSULIN REGULAR, HUMAN 100 UNITS/1 ML SUB-Q SCH ×2 (07:30→16:45)
[2022-01-22] MEDS: IPRATROPIUM/ALBUTEROL SULFATE 3 ML AMPUL.NEB IH SCH ×3 (08:08→21:24)
[2022-01-22] MEDS: ASPIRIN 81 MG TAB CHEW PO SCH (10:16)
[2022-01-22] MEDS: INSULIN NPH/REGULAR 70/30 INJ SUB-Q SCH ×2 (10:16→17:30)
[2022-01-22] MEDS: FINASTERIDE 5 MG TAB PO SCH (10:16)
[2022-01-22] MEDS: LOSARTAN 50 MG TAB PO SCH (10:16)
[2022-01-22] MEDS: cefTRIAXone/NS 2 GM/100 ML 2 GM/100 ML BAG IV SCH (10:16)
[2022-01-22] MEDS: CLOPIDOGREL 75 MG TAB PO SCH (10:16)
[2022-01-22] MEDS: FAMOTIDINE 20 MG TAB PO SCH ×2 (10:17→23:28)
[2022-01-22] MEDS: AMIODARONE 200 MG TAB PO SCH ×2 (10:17→23:28)
[2022-01-22] MEDS ORDERED: FUROSEMIDE 20 MG/2 ML INJ IV SCH ×2 (12:17→13:30)
--- NOTE | 2022-01-22 12:19 | Progress Note ---
Assessment and Plan 81 y/o male with acute respiratory failure secondary to abnormal CXR consistent with right sided mid lung airspace disease, concerning for pneumonia. 01/22/22: Will give lasix 20mg IV x1 today given diastolic dysfunction seen on echo. Repeat CXR tomorrow. Spoke with Rads, not able to reach any family to obtain consent to get thora. Continue abx therapy. 01/21/22: Hopeful thora can be done. Follow up echo 01/20/22: Suggest echo, will order. Will also order US guided thoracentesis with labs. Repeat CXR post thora. Interesting case. no white count, no fever. Differential was normal but was hypoxic on admission per report. All sats in computer above 88%. Started on CAP coverage and steroids. Suggest the following. 1. no prior history of lung disease. Former smoker per H and P. Agree with abx but will hold off steroids for right now. Need to send sputum for culture as well as cyotology. If not able to produce anymore may need to consider bronchoscopy. Incentive boone to bedside. Please consider US guided t horacentesis of right pleural effusion and send for the following: LDH, PROTEIN, Cell count with diff, afb, fungal, glucose, culture as well as cytology. Will continue to follow. Subjective Date of service: 01/22/22 Principal diagnosis: Acute respiratory failure with hypoxia, right lower lobe pneumonia Interval history: echo back showing diastolic dysfunction. No mention of RVSP so unknown if pulm HTN present. No mention of cor pulmonale as well. Still on 2 liters NC Objective Vital Signs - 12hr 01/22/22 01/22/22 06:41 08:08 Pulse Rate 62 Pulse Rate [ 69 Anterior] Pulse Rate [ 70 Posterior] Respiratory 17 Rate [Anterior] Respiratory 19 Rate [Posterior ] Blood Pressure 141/69 Constitutional: no acute distress, alert, other (obese) Eyes: non-icteric ENT: other (poor dentition) Neck: supple Effort: mildly labored Ascultation: Bilateral: diminished breath sounds Gastrointestinal: other (very distant) CBC and BMP: 01/20/22 04:36 01/20/22 04:36 Abnormal lab findings: Abnormal Labs 01/18/22 01/18/22 01/19/22 11:40 11:56 05:16 Hgb Hct Plt Count 101 L 112 L Lymph % (Auto) [place] % (Auto) 13.1 H Lymph # (Auto) [place] # (Auto) 1.2 H Seg Neutrophils % Seg Neuts % (Manual) 97.0 H Lymphocytes % (Manual) 3.0 L Seg Neutrophils # Lymphocytes # (Manual) 0.2 L Carbon Dioxide 21 L BUN Glucose 225 H POC Glucose Lactate Dehydrogenase Total Protein Albumin 3.8 L 01/19/22 01/19/22 01/19/22 05:16 17:17 21:26 Hgb Hct Plt Count Lymph % (Auto) [place] % (Auto) Lymph # (Auto) [place] # (Auto) Seg Neutrophils % Seg Neuts % (Manual) Lymphocytes % (Manual) Seg Neutrophils # Lymphocytes # (Manual) Carbon Dioxide 16 L BUN Glucose 243 H POC Glucose 379 H 340 H Lactate Dehydrogenase Total Protein Albumin 3.5 L 01/20/22 01/20/22 01/20/22 04:36 04:36 07:38 Hgb 11.3 L Hct 34.0 L D Plt Count 118 L Lymph % (Auto) 5.9 L [place] % (Auto) 10.6 H Lymph # (Auto) 0.6 L [place] # (Auto) 1.1 H Seg Neutrophils % 83.4 H Seg Neuts % (Manual) Lymphocytes % (Manual) Seg Neutrophils # 8.5 H Lymphocytes # (Manual) Carbon Dioxide 21 L BUN 28 H Glucose 190 H POC Glucose 160 H Lactate Dehydrogenase Total Protein 5.6 L Albumin 3.5 L 01/20/22 01/20/22 01/20/22 12:08 17:52 22:05 Hgb Hct Plt Count Lymph % (Auto) [place] % (Auto) Lymph # (Auto) [place] # (Auto) Seg Neutrophils % Seg Neuts % (Manual) Lymphocytes % (Manual) Seg Neutrophils # Lymphocytes # (Manual) Carbon Dioxide BUN Glucose POC Glucose 217 H 214 H 213 H Lactate Dehydrogenase Total Protein Albumin 01/20/22 01/21/22 01/21/22 23:23 07:42 21:57 Hgb Hct Plt Count Lymph % (Auto) [place] % (Auto) Lymph # (Auto) [place] # (Auto) Seg Neutrophils % Seg Neuts % (Manual) Lymphocytes % (Manual) Seg Neutrophils # Lymphocytes # (Manual) Carbon Dioxide BUN Glucose POC Glucose 51 L 176 H Lactate Dehydrogenase 241 H Total Protein 5.4 L Albumin 3.1 L 01/22/22 07:54 Hgb Hct Plt Count Lymph % (Auto) [place] % (Auto) Lymph # (Auto) [place] # (Auto) Seg Neutrophils % Seg Neuts % (Manual) Lymphocytes % (Manual) Seg Neutrophils # Lymphocytes # (Manual) Carbon Dioxide BUN Glucose POC Glucose 128 H Lactate Dehydrogenase Total Protein Albumin
[2022-01-22] MEDS: AZITHROMYCIN 250 MG TAB PO SCH (23:27)
[2022-01-23] MEDS: METOPROLOL TARTRATE 25 MG TAB PO SCH ×3 (06:21→21:34)
[2022-01-23] MEDS: IPRATROPIUM/ALBUTEROL SULFATE 3 ML AMPUL.NEB IH SCH ×3 (07:48→21:23)
--- NOTE | 2022-01-23 08:13 | Progress Note ---
Assessment and Plan 81 y/o male with acute respiratory failure secondary to abnormal CXR consistent with right sided mid lung airspace disease, concerning for pneumonia. 01/23/22: Ordered repeat CXR today, pending results of that may consider another dose of IV lasix. Abx therapy has been discontinued by primary team. If effusions still present on repeat CXR, would still suggest thora. 01/22/22: Will give lasix 20mg IV x1 today given diastolic dysfunction seen on echo. Repeat CXR tomorrow. Spoke with Rads, not able to reach any family to obtain consent to get thora. Continue abx therapy. 01/21/22: Hopeful thora can be done. Follow up echo 01/20/22: Suggest echo, will order. Will also order US guided thoracentesis with labs. Repeat CXR post thora. Interesting case. no white count, no fever. Differential was normal but was hypoxic on admission per report. All sats in computer above 88%. Started on CAP coverage and steroids. Suggest the following. 1. no prior history of lung disease. Former smoker per H and P. Agree with abx but will hold off steroids for right now. Need to send sputum for culture as well as cyotology. If not able to produce anymore may need to consider bronchoscopy. Incentive boone to bedside. Please consider US guided thoracentesis of right pleural effusion and send for the following: LDH, PROTE IN, Cell count with diff, afb, fungal, glucose, culture as well as cytology. Will continue to follow. Subjective Date of service: 01/23/22 Principal diagnosis: Acute respiratory failure with hypoxia, right lower lobe pneumonia Interval history: Responded well to lasix therapy. No labs checked this am. Oxygen requirement improved. Still no thoracentesis done yet. Objective Vital Signs - 12hr 01/22/22 01/22/22 01/22/22 21:25 23:09 23:15 Temperature 98.2 F 98.6 F Pulse Rate 61 67 Pulse Rate [ 87 Anterior] Pulse Rate [ 84 Posterior] Respiratory 20 18 Rate Respiratory 16 Rate [Anterior] Respiratory 16 Rate [Posterior ] Blood Pressure 163/72 Blood Pressure 146/72 [Left] O2 Sat by Pulse 96 96 Oximetry 01/22/22 01/23/22 01/23/22 23:24 04:52 05:46 Temperature 97.7 F Pulse Rate 67 59 L Pulse Rate [ Anterior] Pulse Rate [ Posterior] Respiratory 20 Rate Respiratory Rate [Anterior] Respiratory Rate [Posterior ] Blood Pressure 146/72 147/76 Blood Pressure [Left] O2 Sat by Pulse 96 93 Oximetry 01/23/22 06:21 Temperature Pulse Rate 61 Pulse Rate [ Anterior] Pulse Rate [ Posterior] Respiratory Rate Respiratory Rate [Anterior] Respiratory Rate [Posterior ] Blood Pressure 145/72 Blood Pressure [Left] O2 Sat by Pulse Oximetry Constitutional: no acute distress, alert, other (obese) Eyes: non-icteric ENT: other (poor dentition) Neck: supple Effort: mildly labored Ascultation: Bilateral: diminished breath sounds Gastrointestinal: other (very distant) CBC and BMP: 01/20/22 04:36 01/20/22 04:36 Abnormal lab findings: Abnormal Labs 01/18/22 01/18/22 01/19/22 11:40 11:56 05:16 Hgb Hct Plt Count 101 L 112 L Lymph % (Auto) [place] % (Auto) 13.1 H Lymph # (Auto) [place] # (Auto) 1.2 H Seg Neutrophils % Seg Neuts % (Manual) 97.0 H Lymphocytes % (Manual) 3.0 L Seg Neutrophils # Lymphocytes # (Manual) 0.2 L Carbon Dioxide 21 L BUN Glucose 225 H POC Glucose Lactate Dehydrogenase Total Protein Albumin 3.8 L 01/19/22 01/19/22 01/19/22 05:16 17:17 21:26 Hgb Hct Plt Count Lymph % (Auto) [place] % (Auto) Lymph # (Auto) [place] # (Auto) Seg Neutrophils % Seg Neuts % (Manual) Lymphocytes % (Manual) Seg Neutrophils # Lymphocytes # (Manual) Carbon Dioxide 16 L BUN Glucose 243 H POC Glucose 379 H 340 H Lactate Dehydrogenase Total Protein Albumin 3.5 L 01/20/22 01/20/22 01/20/22 04:36 04:36 07:38 Hgb 11.3 L Hct 34.0 L D Plt Count 118 L Lymph % (Auto) 5.9 L [place] % (Auto) 10.6 H Lymph # (Auto) 0.6 L [place] # (Auto) 1.1 H Seg Neutrophils % 83.4 H Seg Neuts % (Manual) Lymphocytes % (Manual) Seg Neutrophils # 8.5 H Lymphocytes # (Manual) Carbon Dioxide 21 L BUN 28 H Glucose 190 H POC Glucose 160 H Lactate Dehydrogenase Total Protein 5.6 L Albumin 3.5 L 01/20/22 01/20/22 01/20/22 12:08 17:52 22:05 Hgb Hct Plt Count Lymph % (Auto) [place] % (Auto) Lymph # (Auto) [place] # (Auto) Seg Neutrophils % Seg Neuts % (Manual) Lymphocytes % (Manual) Seg Neutrophils # Lymphocytes # (Manual) Carbon Dioxide BUN Glucose POC Glucose 217 H 214 H 213 H Lactate Dehydrogenase Total Protein Albumin 01/20/22 01/21/22 01/21/22 23:23 07:42 21:57 Hgb Hct Plt Count Lymph % (Auto) [place] % (Auto) Lymph # (Auto) [place] # (Auto) Seg Neutrophils % Seg Neuts % (Manual) Lymphocytes % (Manual) Seg Neutrophils # Lymphocytes # (Manual) Carbon Dioxide BUN Glucose POC Glucose 51 L 176 H Lactate Dehydrogenase 241 H Total Protein 5.4 L Albumin 3.1 L 01/22/22 01/22/22 01/22/22 07:54 11:34 20:44 Hgb Hct Plt Count Lymph % (Auto) [place] % (Auto) Lymph # (Auto) [place] # (Auto) Seg Neutrophils % Seg Neuts % (Manual) Lymphocytes % (Manual) Seg Neutrophils # Lymphocytes # (Manual) Carbon Dioxide BUN Glucose POC Glucose 128 H 142 H 121 H Lactate Dehydrogenase Total Protein Albumin
--- NOTE | 2022-01-23 08:38 | XRay Report ---
CHEST 1 VIEW 01/23/2022 8:17 AM INDICATION / CLINICAL INFORMATION: Follow up on on right sided airspace disease. COMPARISON: CT chest 01/18/2022, radiograph of the chest 01/18/2022 FINDINGS: SUPPORT DEVICES: None. HEART / MEDIASTINUM: No significant abnormality. LUNGS / PLEURA: Slight interval improvement of the patchy consolidations throughout the right lung. N o pneumothorax. ADDITIONAL FINDINGS: No significant additional findings. IMPRESSION: 1. Persistent but intervally improved multifocal pneumonia throughout the right lung. Signer Name: Brian You MD Signed: 01/23/2022 8:34 AM Workstation Name: [facility]
[2022-01-23] MEDS ORDERED: FUROSEMIDE 20 MG/2 ML INJ IV ONE ×2 (09:41→15:00)
[2022-01-23] MEDS: LOSARTAN 50 MG TAB PO SCH (09:42)
[2022-01-23] MEDS: ASPIRIN 81 MG TAB CHEW PO SCH (09:42)
[2022-01-23] MEDS: INSULIN NPH/REGULAR 70/30 INJ SUB-Q SCH ×2 (09:42→17:51)
[2022-01-23] MEDS: FINASTERIDE 5 MG TAB PO SCH (09:43)
[2022-01-23] MEDS: CLOPIDOGREL 75 MG TAB PO SCH (09:43)
[2022-01-23] MEDS: INSULIN REGULAR, HUMAN 100 UNITS/1 ML SUB-Q SCH ×2 (09:43→17:52)
[2022-01-23] MEDS: AMIODARONE 200 MG TAB PO SCH ×2 (09:43→21:35)
[2022-01-23] MEDS: FAMOTIDINE 20 MG TAB PO SCH ×2 (09:43→21:35)
[2022-01-23 09:50] LABS: Alanine Aminotransferase 18 units/L (7-56); Albumin 3.3 g/dL (3.9-5); BUN/Creatinine Ratio 14; Blood Urea Nitrogen 13 mg/dL (9-20); Calcium 8.1 mg/dL (8.4-10.2); Hemolysis Index 20
--- NOTE | 2022-01-23 10:28 | Progress Note ---
Assessment and Plan - Patient Problems (1) Acute respiratory failure with hypoxia Current Visit: Yes Status: Acute Plan to address problem: Patient was hypoxic at the time of admission to the emergency room Patient improved with nasal cannula oxygen Continue oxygen and titrate (2) Right lower lobe pneumonia Current Visit: Yes Status: Acute Plan to address problem: Possible aspiration versus community-acquired pneumonia IV ceftriaxone and IV Zithromax to cover atypicals. DuoNebs as needed. Pulmonary consult appreciated Pleural fluid for cytology Bronchoscopy if necessary (3) IDDM (insulin dependent diabetes mellitus) Current Visit: Yes Status: Chronic Plan to address problem: Continue insulin and coverage. (4) Hypertension Current Visit: No Status: Chronic Qualifiers: Hypertension type: primary hypertension Qualified Code(s): I10 - Essential (primary) hypertension Plan to address problem: Continue home antihypertensives and adjust medications (5) Seizure disorder Current Visit: Yes Status: Chronic Plan to address problem: Continue Keppra (6) BPH (benign prostatic hyperplasia) Current Visit: Yes Status: Chronic Qualifiers: Lower urinary tract symptom presence: symptoms present Plan to address problem: Continue finasteride (7) Malnutrition Current Visit: Yes Status: Chronic Qualifiers: Malnutrition type: protein-calorie malnutrition Protein-calorie malnutrition severity: mild Qualified Code(s): E44.1 - Mild protein-calorie malnutrition Plan to address problem: Dietary supplements requested (8) DVT prophylaxis Current Visit: Yes Status: Acute Plan to address problem: On heparin and GI prophylaxis (9) Advance care planning Current Visit: Yes Status: Acute Plan to address problem: Disease education conducted, care plan discussed, diagnosis discussed and prognosis discussed. Patient acknowledged understanding with care plan. +30 minutes. Patient is full code. Subjective Date of service: 01/21/22 Principal diagnosis: Acute respiratory failure with hypoxia, right lower lobe pneumonia Interval history: 81-year-old -[place] male with history of hypertension, insulin- dependent diabetes, seizure disorder per lipidemia comes in and for increasing shortness of breath since a.m. Also cough productive of mucoid sputum. Low- grade fever present. Patient is not on oxygen at home. Oxygen saturations were low in the emergency room and the high 80s. Initially. Improved with nasal cannula oxygen. 01/19/2022 Shortness of breath present Pulmonary consult appreciated Objective - Constitutional Vitals: Vital Signs - 12hr 01/22/22 01/22/22 01/22/22 23:09 23:15 23:24 Temperature 98.2 F 98.6 F Pulse Rate 61 67 67 Pulse Rate [ Posterior] Respiratory 20 18 Rate Respiratory Rate [Posterior ] Blood Pressure 163/72 146/72 Blood Pressure 146/72 [Left] O2 Sat by Pulse 96 96 Oximetry 01/23/22 01/23/22 01/23/22 04:52 05:46 06:21 Temperature 97.7 F Pulse Rate 59 L 61 Pulse Rate [ Posterior] Respiratory 20 Rate Respiratory Rate [Posterior ] Blood Pressure 147/76 145/72 Blood Pressure [Left] O2 Sat by Pulse 96 93 Oximetry 01/23/22 07:48 Temperature Pulse Rate Pulse Rate [ 64 Posterior] Respiratory Rate Respiratory 16 Rate [Posterior ] Blood Pressure Blood Pressure [Left] O2 Sat by Pulse 100 Oximetry General appearance: Present: no acute distress, well-nourished - EENT Eyes: PERRL, EOM intact ENT: hearing intact, clear oral mucosa Ears: bilateral: normal - Neck Neck: supple, normal ROM - Respiratory Respiratory effort: normal Respiratory: bilateral: CTA - Breasts Breasts: normal - Cardiovascular Rhythm: regular Heart Sounds: Present: S1 & S2. Absent: gallop, rub Extremities: pulses intact, No edema, normal color, Full ROM - Gastrointestinal General gastrointestinal: Present: soft, non-tender, non-distended, normal bowel sounds - Genitourinary Male genitourinary: normal - Integumentary Integumentary: clear, warm, dry - Musculoskeletal Musculoskeletal: 1, strength equal bilaterally - Neurologic Neurologic: moves all extremities - Psychiatric Psychiatric: memory intact, appropriate mood/affect, intact judgment & insight - Labs CBC & Chem 7: 01/20/22 04:36 01/23/22 09:06 Labs: Abnormal lab results 01/22/22 01/22/22 01/23/22 Range/Units 11:34 20:44 07:09 Glucose (75-100) mg/dL POC Glucose 142 H 121 H 64 L (70-105) mg/dL Calcium (8.4-10.2) mg/dL Total Protein (6.3-8.2) g/dL Albumin (3.9-5) g/dL 01/23/22 Range/Units 09:06 Glucose 63 L (75-100) mg/dL POC Glucose (70-105) mg/dL Calcium 8.1 L (8.4-10.2) mg/dL Total Protein 5.4 L (6.3-8.2) g/dL Albumin 3.3 L (3.9-5) g/dL HEART Score - HEART Score Age: > 65 Risk factors: > 3 risk factors or hx of atherosclerotic disease Troponin: Troponin T < 0.010 ng/mL (0.00-0.029) 01/18/22 19:08 Troponin: < normal limit - Critical Actions Critical Actions: 0-3 pts:0.9-1.7%risk of adverse cardiac event.Candidate for discharge
--- NOTE | 2022-01-23 17:49 | Progress Note ---
Assessment and Plan - Patient Problems (1) Acute respiratory failure with hypoxia Current Visit: Yes Status: Acute Plan to address problem: Patient was hypoxic at the time of admission to the emergency room Patient improved with nasal cannula oxygen Continue oxygen and titrate (2) Right lower lobe pneumonia Current Visit: Yes Status: Acute Plan to address problem: Possible aspiration versus community-acquired pneumonia IV ceftriaxone and IV Zithromax to cover atypicals. DuoNebs as needed. Pulmonary consult appreciated Pleural fluid for cytology Bronchoscopy if necessary (3) IDDM (insulin dependent diabetes mellitus) Current Visit: Yes Status: Chronic Plan to address problem: Continue insulin and coverage. (4) Hypertension Current Visit: No Status: Chronic Qualifiers: Hypertension type: primary hypertension Qualified Code(s): I10 - Essential (primary) hypertension Plan to address problem: Continue home antihypertensives and adjust medications (5) Seizure disorder Current Visit: Yes Status: Chronic Plan to address problem: Continue Keppra (6) BPH (benign prostatic hyperplasia) Current Visit: Yes Status: Chronic Qualifiers: Lower urinary tract symptom presence: symptoms present Plan to address problem: Continue finasteride (7) Malnutrition Current Visit: Yes Status: Chronic Qualifiers: Malnutrition type: protein-calorie malnutrition Protein-calorie malnutrition severity: mild Qualified Code(s): E44.1 - Mild protein-calorie malnutrition Plan to address problem: Dietary supplements requested (8) DVT prophylaxis Current Visit: Yes Status: Acute Plan to address problem: On heparin and GI prophylaxis (9) Advance care planning Current Visit: Yes Status: Acute Plan to address problem: Disease education conducted, care plan discussed, diagnosis discussed and prognosis discussed. Patient acknowledged understanding with care plan. +30 minutes. Patient is full code. Subjective Date of service: 01/23/22 Principal diagnosis: Acute respiratory failure with hypoxia, right lower lobe pneumonia Interval history: 81-year-old -[place] male with history of hypertension, insulin- dependent diabetes, seizure disorder per lipidemia comes in and for increasing shortness of breath since a.m. Also cough productive of mucoid sputum. Low- grade fever present. Patient is not on oxygen at home. Oxygen saturations were low in the emergency room and the high 80s. Initially. Improved with nasal cannula oxygen. 01/19/2022 Shortness of breath present Pulmonary consult appreciated Objective - Constitutional Vitals: Vital Signs - 12hr 01/23/22 01/23/22 01/23/22 05:46 06:21 07:48 Temperature 97.7 F Pulse Rate 59 L 61 Pulse Rate [ 64 Posterior] Respiratory 20 Rate Respiratory 16 Rate [Posterior ] Blood Pressure 147/76 145/72 O2 Sat by Pulse 93 100 Oximetry 01/23/22 01/23/22 01/23/22 10:48 12:46 13:53 Temperature 98.0 F Pulse Rate 55 L Pulse Rate [ 62 Posterior] Respiratory 20 Rate Respiratory 16 Rate [Posterior ] Blood Pressure 162/66 O2 Sat by Pulse 95 96 Oximetry General appearance: Present: no acute distress, well-nourished - EENT Eyes: PERRL, EOM intact ENT: hearing intact, clear oral mucosa Ears: bilateral: normal - Neck Neck: supple, normal ROM - Respiratory Respiratory effort: normal Respiratory: bilateral: CTA - Breasts Breasts: normal - Cardiovascular Heart rate: 78 Rhythm: regular Heart Sounds: Present: S1 & S2. Absent: gallop, rub Extremities: pulses intact, No edema, normal color, Full ROM - Gastrointestinal General gastrointestinal: Present: soft, non-tender, non-distended, normal bowel sounds - Genitourinary Male genitourinary: normal - Integumentary Integumentary: clear, warm, dry - Musculoskeletal Musculoskeletal: 1, strength equal bilaterally - Neurologic Neurologic: moves all extremities - Psychiatric Psychiatric: memory intact, appropriate mood/affect, intact judgment & insight - Labs CBC & Chem 7: 01/20/22 04:36 01/23/22 09:06 Labs: Abnormal lab results 01/22/22 01/23/22 01/23/22 Range/Units 20:44 07:09 09:06 Glucose 63 L (75-100) mg/dL POC Glucose 121 H 64 L (70-105) mg/dL Calcium 8.1 L (8.4-10.2) mg/dL Total Protein 5.4 L (6.3-8.2) g/dL Albumin 3.3 L (3.9-5) g/dL HEART Score - HEART Score Age: > 65 Risk factors: > 3 risk factors or hx of atherosclerotic disease Troponin: Troponin T < 0.010 ng/mL (0.00-0.029) 01/18/22 19:08 Troponin: < normal limit - Critical Actions Critical Actions: 0-3 pts:0.9-1.7%risk of adverse cardiac event.Candidate for discharge
[2022-01-24] MEDS: METOPROLOL TARTRATE 25 MG TAB PO SCH ×3 (06:13→21:48)
[2022-01-24 06:44] LABS: Alanine Aminotransferase 16 units/L (7-56); Albumin 3.3 g/dL (3.9-5); BUN/Creatinine Ratio 18; Blood Urea Nitrogen 16 mg/dL (9-20); Calcium 8.1 mg/dL (8.4-10.2); Hemolysis Index 2
[2022-01-24] MEDS: IPRATROPIUM/ALBUTEROL SULFATE 3 ML AMPUL.NEB IH SCH ×3 (07:38→20:25)
--- NOTE | 2022-01-24 08:19 | Progress Note ---
Assessment and Plan 81 y/o male with acute respiratory failure secondary to abnormal CXR consistent with right sided mid lung airspace disease, concerning for pneumonia. 01/24/22: hold on lasix today. Repeat CXR tomorrow. If completely resolved doubt those infiltrates were infection related and may have been unilateral pulmonary edema. Echo showed no issues with heart valves per report. Will continue to follow. 01/23/22: Ordered repeat CXR today, pending results of that may consider another dose of IV lasix. Abx therapy has been discontinued by primary team. If effusions still present on repeat CXR, would still suggest thora. 01/22/22: Will give lasix 20mg IV x1 today given diastolic dysfunction seen on echo. Repeat CXR tomorrow. Spoke with Rads, not able to reach any family to obtain consent to get thora. Continue abx therapy. 01/21/22: Hopeful thora can be done. Follow up echo 01/20/22: Suggest echo, will order. Will also order US guided thoracentesis with labs. Repeat CXR post thora. Interesting case. no white count, no fever. Differential was normal but was hypoxic on admission per report. All sats in computer above 88%. Started on CAP coverage and steroids. Suggest the following. 1. no prior history of lung disease. Former smoker per H and P. Agree with abx but will hold off steroids for right now. Need to send sputum for culture as well as cyotology. If not able to produce anymore may need to consider bronchoscopy. Incentive boone to bedside. Please consider US guided thoracentesis of right pleural effusion and send for the following: LDH, PROTEIN, Cell count with diff, afb, fungal, glucose, culture as well as cytology. Will continue to follow. Subjective Date of service: 01/24/22 Principal diagnosis: Acute respiratory failure with hypoxia, right lower lobe pneumonia Interval history: Tolerated lasix well again yesterday with good output. Objective Vital Signs - 12hr 01/23/22 01/24/22 01/24/22 21:25 01:27 04:17 Temperature 98.7 F 98.2 F Pulse Rate 62 60 Pulse Rate [ 65 Anterior] Respiratory 18 18 Rate Respiratory 20 Rate [Anterior] Blood Pressure 151/69 140/57 O2 Sat by Pulse 96 97 98 Oximetry 01/24/22 01/24/22 06:00 06:13 Temperature 98.8 F Pulse Rate 57 L 57 L Pulse Rate [ Anterior] Respiratory 8 L Rate Respiratory Rate [Anterior] Blood Pressure 154/76 154/76 O2 Sat by Pulse 93 Oximetry Constitutional: no acute distress, alert, other (obese) Eyes: non-icteric ENT: other (poor dentition) Neck: supple Effort: mildly labored Ascultation: Bilateral: diminished breath sounds Gastrointestinal: other (very distant) CBC and BMP: 01/20/22 04:36 01/24/22 05:55 Abnormal lab findings: Abnormal Labs 01/18/22 01/18/22 01/19/22 11:40 11:56 05:16 Hgb Hct Plt Count 101 L 112 L Lymph % (Auto) Ida % (Auto) 13.1 H Lymph # (Auto) Ida # (Auto) 1.2 H Seg Neutrophils % Seg Neuts % (Manual) 97.0 H Lymphocytes % (Manual) 3.0 L Seg Neutrophils # Lymphocytes # (Manual) 0.2 L Carbon Dioxide 21 L BUN Glucose 225 H POC Glucose Calcium Lactate Dehydrogenase Total Protein Albumin 3.8 L 01/19/22 01/19/22 01/19/22 05:16 17:17 21:26 Hgb Hct Plt Count Lymph % (Auto) Ida % (Auto) Lymph # (Auto) Ida # (Auto) Seg Neutrophils % Seg Neuts % (Manual) Lymphocytes % (Manual) Seg Neutrophils # Lymphocytes # (Manual) Carbon Dioxide 16 L BUN Glucose 243 H POC Glucose 379 H 340 H Calcium Lactate Dehydrogenase Total Protein Albumin 3.5 L 01/20/22 01/20/22 01/20/22 04:36 04:36 07:38 Hgb 11.3 L Hct 34.0 L D Plt Count 118 L Lymph % (Auto) 5.9 L Ida % (Auto) 10.6 H Lymph # (Auto) 0.6 L Ida # (Auto) 1.1 H Seg Neutrophils % 83.4 H Seg Neuts % (Manual) Lymphocytes % (Manual) Seg Neutrophils # 8.5 H Lymphocytes # (Manual) Carbon Dioxide 21 L BUN 28 H Glucose 190 H POC Glucose 160 H Calcium Lactate Dehydrogenase Total Protein 5.6 L Albumin 3.5 L 01/20/22 01/20/22 01/20/22 12:08 17:52 22:05 Hgb Hct Plt Count Lymph % (Auto) Ida % (Auto) Lymph # (Auto) Ida # (Auto) Seg Neutrophils % Seg Neuts % (Manual) Lymphocytes % (Manual) Seg Neutrophils # Lymphocytes # (Manual) Carbon Dioxide BUN Glucose POC Glucose 217 H 214 H 213 H Calcium Lactate Dehydrogenase Total Protein Albumin 01/20/22 01/21/22 01/21/22 23:23 07:42 21:57 Hgb Hct Plt Count Lymph % (Auto) Ida % (Auto) Lymph # (Auto) Ida # (Auto) Seg Neutrophils % Seg Neuts % (Manual) Lymphocytes % (Manual) Seg Neutrophils # Lymphocytes # (Manual) Carbon Dioxide BUN Glucose POC Glucose 51 L 176 H Calcium Lactate Dehydrogenase 241 H Total Protein 5.4 L Albumin 3.1 L 01/22/22 01/22/22 01/22/22 07:54 11:34 20:44 Hgb Hct Plt Count Lymph % (Auto) Ida % (Auto) Lymph # (Auto) Ida # (Auto) Seg Neutrophils % Seg Neuts % (Manual) Lymphocytes % (Manual) Seg Neutrophils # Lymphocytes # (Manual) Carbon Dioxide BUN Glucose POC Glucose 128 H 142 H 121 H Calcium Lactate Dehydrogenase Total Protein Albumin 01/23/22 01/23/22 01/23/22 07:09 09:06 16:06 Hgb Hct Plt Count Lymph % (Auto) Ida % (Auto) Lymph # (Auto) Ida # (Auto) Seg Neutrophils % Seg Neuts % (Manual) Lymphocytes % (Manual) Seg Neutrophils # Lymphocytes # (Manual) Carbon Dioxide BUN Glucose 63 L POC Glucose 64 L 42 L Calcium 8.1 L Lactate Dehydrogenase Total Protein 5.4 L Albumin 3.3 L 01/23/22 01/23/22 01/24/22 17:23 21:25 05:55 Hgb Hct Plt Count Lymph % (Auto) Ida % (Auto) Lymph # (Auto) Ida # (Auto) Seg Neutrophils % Seg Neuts % (Manual) Lymphocytes % (Manual) Seg Neutrophils # Lymphocytes # (Manual) Carbon Dioxide BUN Glucose 148 H POC Glucose 131 H 261 H Calcium 8.1 L Lactate Dehydrogenase Total Protein 5.7 L Albumin 3.3 L
[2022-01-24] MEDS: AMIODARONE 200 MG TAB PO SCH ×2 (10:14→21:49)
[2022-01-24] MEDS: CLOPIDOGREL 75 MG TAB PO SCH (10:14)
[2022-01-24] MEDS: FINASTERIDE 5 MG TAB PO SCH (10:14)
[2022-01-24] MEDS: FAMOTIDINE 20 MG TAB PO SCH ×2 (10:14→21:48)
[2022-01-24] MEDS: ASPIRIN 81 MG TAB CHEW PO SCH (10:14)
[2022-01-24] MEDS: LOSARTAN 50 MG TAB PO SCH (10:14)
[2022-01-24] MEDS: INSULIN REGULAR, HUMAN 100 UNITS/1 ML SUB-Q SCH ×2 (10:16→17:45)
[2022-01-24] MEDS: INSULIN NPH/REGULAR 70/30 INJ SUB-Q SCH ×2 (10:16→17:45)
[2022-01-25] MEDS: METOPROLOL TARTRATE 25 MG TAB PO SCH ×3 (05:29→23:31)
[2022-01-25] MEDS: INSULIN REGULAR, HUMAN 100 UNITS/1 ML SUB-Q SCH ×3 (07:30→23:29)
--- NOTE | 2022-01-25 07:56 | Progress Note ---
Assessment and Plan - Patient Problems (1) Acute respiratory failure with hypoxia Current Visit: Yes Status: Acute Plan to address problem: Patient was hypoxic at the time of admission to the emergency room Patient improved with nasal cannula oxygen Continue oxygen and titrate (2) Right lower lobe pneumonia Current Visit: Yes Status: Acute Plan to address problem: Possible aspiration versus community-acquired pneumonia IV ceftriaxone and IV Zithromax to cover atypicals. DuoNebs as needed. Pulmonary consult appreciated Pleural fluid for cytology Bronchoscopy if necessary (3) Pleural effusion Current Visit: Yes Status: Acute (4) IDDM (insulin dependent diabetes mellitus) Current Visit: Yes Status: Chronic Plan to address problem: Continue insulin and coverage. (5) Hypertension Current Visit: No Status: Chronic Qualifiers: Hypertension type: primary hypertension Qualified Code(s): I10 - Essential (primary) hypertension Plan to address problem: Continue home antihypertensives and adjust medications (6) Seizure disorder Current Visit: Yes Status: Chronic Plan to address problem: Continue Keppra (7) BPH (benign prostatic hyperplasia) Current Visit: Yes Status: Chronic Qualifiers: Lower urinary tract symptom presence: symptoms present Plan to address problem: Continue finasteride (8) Malnutrition Current Visit: Yes Status: Chronic Qualifiers: Malnutrition type: protein-calorie malnutrition Protein-calorie malnutrition severity: mild Qualified Code(s): E44.1 - Mild protein-calorie malnutrition Plan to address problem: Dietary supplements requested (9) DVT prophylaxis Current Visit: Yes Status: Acute Plan to address problem: On heparin and GI prophylaxis (10) Advance care planning Current Visit: Yes Status: Acute Plan to address problem: Disease education conducted, care plan discussed, diagnosis discussed and progn osis discussed. Patient acknowledged understanding with care plan. +30 minutes. Patient is full code. Subjective Date of service: 01/24/22 Principal diagnosis: Acute respiratory failure with hypoxia, right lower lobe pneumonia Interval history: 81-year-old -[place] male with history of hypertension, insulin- dependent diabetes, seizure disorder per lipidemia comes in and for increasing shortness of breath since a.m. Also cough productive of mucoid sputum. Low- grade fever present. Patient is not on oxygen at home. Oxygen saturations were low in the emergency room and the high 80s. Initially. Improved with nasal cannula oxygen. 01/19/2022 Shortness of breath present Pulmonary consult appreciated Objective - Constitutional Vitals: Vital Signs - 12hr 01/24/22 01/24/22 01/24/22 20:25 21:10 21:48 Temperature 98.4 F Pulse Rate 62 62 Pulse Rate [ 64 Anterior] Respiratory 18 Rate Respiratory 18 Rate [Anterior] Blood Pressure 136/50 136/50 Blood Pressure [Right] O2 Sat by Pulse 96 Oximetry 01/25/22 01/25/22 01/25/22 04:00 04:53 05:24 Temperature 98.1 F Pulse Rate 56 L 56 L Pulse Rate [ Anterior] Respiratory 18 Rate Respiratory Rate [Anterior] Blood Pressure 139/63 Blood Pressure [Right] O2 Sat by Pulse 98 96 96 Oximetry 01/25/22 05:27 Temperature 97.7 F Pulse Rate Pulse Rate [ Anterior] Respiratory 18 Rate Respiratory Rate [Anterior] Blood Pressure Blood Pressure 147/56 [Right] O2 Sat by Pulse Oximetry General appearance: Present: no acute distress, well-nourished - EENT Eyes: PERRL, EOM intact ENT: hearing intact, clear oral mucosa Ears: bilateral: normal - Neck Neck: supple, normal ROM - Respiratory Respiratory effort: normal Respiratory: bilateral: CTA - Breasts Breasts: normal - Cardiovascular Rhythm: regular Heart Sounds: Present: S1 & S2. Absent: gallop, rub Extremities: pulses intact, No edema, normal color, Full ROM - Gastrointestinal General gastrointestinal: Present: soft, non-tender, non-distended, normal bowel sounds - Genitourinary Male genitourinary: normal - Integumentary Integumentary: clear, warm, dry - Musculoskeletal Musculoskeletal: 1, strength equal bilaterally - Neurologic Neurologic: moves all extremities - Psychiatric Psychiatric: memory intact, appropriate mood/affect, intact judgment & insight - Labs CBC & Chem 7: 01/20/22 04:36 01/24/22 05:55 Labs: Abnormal lab results 01/24/22 01/24/22 01/24/22 Range/Units 07:15 11:08 16:38 POC Glucose 135 H 268 H 254 H (70-105) mg/dL 01/24/22 Range/Units 21:38 POC Glucose 251 H (70-105) mg/dL HEART Score - HEART Score Age: > 65 Risk factors: > 3 risk factors or hx of atherosclerotic disease Troponin: Troponin T < 0.010 ng/mL (0.00-0.029) 01/18/22 19:08 Troponin: < normal limit - Critical Actions Critical Actions: 0-3 pts:0.9-1.7%risk of adverse cardiac event.Candidate for discharge
[2022-01-25] MEDS: INSULIN NPH/REGULAR 70/30 INJ SUB-Q SCH ×2 (08:00→17:39)
--- NOTE | 2022-01-25 08:57 | XRay Report ---
CHEST 1 VIEW 01/25/2022 7:11 AM INDICATION / CLINICAL INFORMATION: right sided infiltrate, edema vs pneumonia. COMPARISON: 01/23/2022 FINDINGS: SUPPORT DEVICES: None. HEART / MEDIASTINUM: No significant abnormality. LUNGS / PLEURA: Patchy infiltrate in the right lung has resolved or nearly resolved since the previou s exam. The left lung remains generally clear. No pleural effusion or pneumothorax is detected. ADDITIONAL FINDINGS: No significant additional findings. IMPRESSION: 1. Significant improvement in the right lung infiltration. Signer Name: Cahd Glasgow Jr, MD Signed: 01/25/2022 8:52 AM Workstation Name: [id number]
[2022-01-25] MEDS: CLOPIDOGREL 75 MG TAB PO SCH (09:23)
[2022-01-25] MEDS: AMIODARONE 200 MG TAB PO SCH ×2 (09:23→23:30)
[2022-01-25] MEDS: LOSARTAN 50 MG TAB PO SCH (09:24)
[2022-01-25] MEDS: FAMOTIDINE 20 MG TAB PO SCH ×2 (09:24→21:22)
[2022-01-25] MEDS: ASPIRIN 81 MG TAB CHEW PO SCH (09:24)
[2022-01-25] MEDS: FINASTERIDE 5 MG TAB PO SCH (09:25)
[2022-01-25] MEDS: IPRATROPIUM/ALBUTEROL SULFATE 3 ML AMPUL.NEB IH SCH (10:00)
[2022-01-25] MEDS ORDERED: FUROSEMIDE 20 MG/2 ML INJ IV ONE (11:38)
--- NOTE | 2022-01-25 11:38 | Progress Note ---
Assessment and Plan 81 y/o male with acute respiratory failure secondary to abnormal CXR consistent with right sided mid lung airspace disease, concerning for pneumonia. 01/25/22: Patient's CXR is almost normal. Most likely diuretics did this and not the few days of abx patient had. He had not white, no fever with bilateral pleural effusions and right sided airspace disease. Despite echo results, inclined to believe this was heart failure related. Suggest scheduled lasix for this patient. Stopped scheduled neb therapy. Will give IV lasix again today and then defer to primary team for further therapy now and at discharge. Will sign off. Call if questions. 01/24/22: hold on lasix today. Repeat CXR tomorrow. If completely resolved doubt those infiltrates were infection related and may have been unilateral pulmonary edema. Echo showed no issues with heart valves per report. Will continue to follow. 01/23/22: Ordered repeat CXR today, pending results of that may consider another dose of IV lasix. Abx therapy has been discontinued by primary team. If effusions still present on repeat CXR, would still suggest thora. 01/22/22: Will give lasix 20mg IV x1 today given diastolic dysfunction seen on echo. Repeat CXR tomorrow. Spoke with Rads, not able to reach any family to obtain consent to get thora. Continue abx therapy. 01/21/22: Hopeful thora can be done. Follow up echo 01/20/22: Suggest echo, will order. Will also order US guided thoracentesis with labs. Repeat CXR post thora. Interesting case. no white count, no fever. Differential was normal but was hypoxic on admission per report. All sats in computer above 88%. Started on CAP coverage and steroids. Suggest the following. 1. no prior history of lung disease. Former smoker per H and P. Agree with abx but will hold off steroids for right now. Need to send sputum for culture as well as cyotology. If not able to produce anymore may need to consider bronchoscopy. Incentive boone to bedside. Please consider US guided thoracentesis of right pleural effusion and send for the following: LDH, PROTEIN, Cell count with diff, afb, fungal, glucose, culture as well as cytology. Will continue to follow. Subjective Date of service: 01/25/22 Principal diagnosis: Acute respiratory failure with hypoxia, right lower lobe pneumonia Interval history: CXR has almost completely resolved compared to admission. Objective Vital Signs - 12hr 01/25/22 01/25/22 01/25/22 04:00 04:53 05:24 Temperature 98.1 F Pulse Rate 56 L 56 L Pulse Rate [ Anterior] Respiratory 18 Rate Respiratory Rate [Anterior] Blood Pressure 139/63 Blood Pressure [Right] O2 Sat by Pulse 98 96 96 Oximetry 01/25/22 01/25/22 01/25/22 05:27 09:24 09:31 Temperature 97.7 F 98.4 F Pulse Rate 95 H 95 H Pulse Rate [ Anterior] Respiratory 18 20 Rate Respiratory Rate [Anterior] Blood Pressure 147/70 Blood Pressure 147/56 147/70 [Right] O2 Sat by Pulse 97 Oximetry 01/25/22 10:00 Temperature Pulse Rate Pulse Rate [ 62 Anterior] Respiratory Rate Respiratory 18 Rate [Anterior] Blood Pressure Blood Pressure [Right] O2 Sat by Pulse Oximetry Constitutional: no acute distress, alert, other (obese) Eyes: non-icteric ENT: other (poor dentition) Neck: supple Effort: mildly labored Ascultation: Bilateral: diminished breath sounds Gastrointestinal: other (very distant) CBC and BMP: 01/20/22 04:36 01/24/22 05:55 Abnormal lab findings: Abnormal Labs 01/18/22 01/18/22 01/19/22 11:40 11:56 05:16 Hgb Hct Plt Count 101 L 112 L Lymph % (Auto) [place] % (Auto) 13.1 H Lymph # (Auto) [place] # (Auto) 1.2 H Seg Neutrophils % Seg Neuts % (Manual) 97.0 H Lymphocytes % (Manual) 3.0 L Seg Neutrophils # Lymphocytes # (Manual) 0.2 L Carbon Dioxide 21 L BUN Glucose 225 H POC Glucose Calcium Lactate Dehydrogenase Total Protein Albumin 3.8 L 01/19/22 01/19/22 01/19/22 05:16 17:17 21:26 Hgb Hct Plt Count Lymph % (Auto) [place] % (Auto) Lymph # (Auto) [place] # (Auto) Seg Neutrophils % Seg Neuts % (Manual) Lymphocytes % (Manual) Seg Neutrophils # Lymphocytes # (Manual) Carbon Dioxide 16 L BUN Glucose 243 H POC Glucose 379 H 340 H Calcium Lactate Dehydrogenase Total Protein Albumin 3.5 L 01/20/22 01/20/2201/20/22 04:36 04:36 07:38 Hgb 11.3 L Hct 34.0 L D Plt Count 118 L Lymph % (Auto) 5.9 L [place] % (Auto) 10.6 H Lymph # (Auto) 0.6 L [place] # (Auto) 1.1 H Seg Neutrophils % 83.4 H Seg Neuts % (Manual) Lymphocytes % (Manual) Seg Neutrophils # 8.5 H Lymphocytes # (Manual) Carbon Dioxide 21 L BUN 28 H Glucose 190 H POC Glucose 160 H Calcium Lactate Dehydrogenase Total Protein 5.6 L Albumin 3.5 L 01/20/22 01/20/22 01/20/22 12:08 17:52 22:05 Hgb Hct Plt Count Lymph % (Auto) [place] % (Auto) Lymph # (Auto) [place] # (Auto) Seg Neutrophils % Seg Neuts % (Manual) Lymphocytes % (Manual) Seg Neutrophils # Lymphocytes # (Manual) Carbon Dioxide BUN Glucose POC Glucose 217 H 214 H 213 H Calcium Lactate Dehydrogenase Total Protein Albumin 01/20/22 01/21/22 01/21/22 23:23 07:42 21:57 Hgb Hct Plt Count Lymph % (Auto) [place] % (Auto) Lymph # (Auto) [place] # (Auto) Seg Neutrophils % Seg Neuts % (Manual) Lymphocytes % (Manual) Seg Neutrophils # Lymphocytes # (Manual) Carbon Dioxide BUN Glucose POC Glucose 51 L 176 H Calcium Lactate Dehydrogenase 241 H Total Protein 5.4 L Albumin 3.1 L 01/22/22 01/22/22 01/22/22 07:54 11:34 20:44 Hgb Hct Plt Count Lymph % (Auto) [place] % (Auto) Lymph # (Auto) [place] # (Auto) Seg Neutrophils % Seg Neuts % (Manual) Lymphocytes % (Manual) Seg Neutrophils # Lymphocytes # (Manual) Carbon Dioxide BUN Glucose POC Glucose 128 H 142 H 121 H Calcium Lactate Dehydrogenase Total Protein Albumin 01/23/22 01/23/22 01/23/22 07:09 09:06 16:06 Hgb Hct Plt Count Lymph % (Auto) [place] % (Auto) Lymph # (Auto) [place] # (Auto) Seg Neutrophils % Seg Neuts % (Manual) Lymphocytes % (Manual) Seg Neutrophils # Lymphocytes # (Manual) Carbon Dioxide BUN Glucose 63 L POC Glucose 64 L 42 L Calcium 8.1 L Lactate Dehydrogenase Total Protein 5.4 L Albumin 3.3 L 01/23/22 01/23/22 01/24/22 17:23 21:25 05:55 Hgb Hct Plt Count Lymph % (Auto) [place] % (Auto) Lymph # (Auto) [place] # (Auto) Seg Neutrophils % Seg Neuts % (Manual) Lymphocytes % (Manual) Seg Neutrophils # Lymphocytes # (Manual) Carbon Dioxide BUN Glucose 148 H POC Glucose 131 H 261 H Calcium 8.1 L Lactate Dehydrogenase Total Protein 5.7 L Albumin 3.3 L 01/24/22 01/24/22 01/24/22 07:15 11:08 16:38 Hgb Hct Plt Count Lymph % (Auto) [place] % (Auto) Lymph # (Auto) [place] # (Auto) Seg Neutrophils % Seg Neuts % (Manual) Lymphocytes % (Manual) Seg Neutrophils # Lymphocytes # (Manual) Carbon Dioxide BUN Glucose POC Glucose 135 H 268 H 254 H Calcium Lactate Dehydrogenase Total Protein Albumin 01/24/22 21:38 Hgb Hct Plt Count Lymph % (Auto) [place] % (Auto) Lymph # (Auto) [place] # (Auto) Seg Neutrophils % Seg Neuts % (Manual) Lymphocytes % (Manual) Seg Neutrophils # Lymphocytes # (Manual) Carbon Dioxide BUN Glucose POC Glucose 251 H Calcium Lactate Dehydrogenase Total Protein Albumin
[2022-01-26] MEDS: METOPROLOL TARTRATE 25 MG TAB PO SCH ×2 (05:42→15:23)
[2022-01-26] MEDS: INSULIN REGULAR, HUMAN 100 UNITS/1 ML SUB-Q SCH ×3 (07:30→16:30)
[2022-01-26] MEDS: INSULIN NPH/REGULAR 70/30 INJ SUB-Q SCH ×2 (08:00→16:30)
[2022-01-26] MEDS: AMIODARONE 200 MG TAB PO SCH (10:22)
[2022-01-26] MEDS: FAMOTIDINE 20 MG TAB PO SCH (10:23)
[2022-01-26] MEDS: ASPIRIN 81 MG TAB CHEW PO SCH (10:23)
[2022-01-26] MEDS: CLOPIDOGREL 75 MG TAB PO SCH (10:23)
[2022-01-26] MEDS: FINASTERIDE 5 MG TAB PO SCH (10:23)
[2022-01-26] MEDS: LOSARTAN 50 MG TAB PO SCH (10:34)
--- NOTE | 2022-01-26 11:07 | Discharge Summary ---
Providers - Providers Date of Admission: 01/18/22 16:36 Date of discharge: 01/26/22 Attending physician: BATSHEVA FREEMAN Primary care physician: [employer] Hospitalization Reason for admission: PNA Condition: Fair Hospital course: 81 y/o male with acute respiratory failure secondary to abnormal CXR consistent with right sided mid lung airspace disease, concerning for pneumonia. However, pneumonia appears to have ruled out and patient appeared to have respiratory failure secondary to pulmonary edema. Pulmonary evaluated the patient and suggested scheduled Lasix 20 mg p.o. daily. Dedicated discharge time 32 minutes Hospital Course: 01/25/22: Patient's CXR is almost normal. Most likely diuretics did this and not the few days of abx patient had. He had not white, no fever with bilateral pleural effusions and right sided airspace disease. Despite echo results, inclined to believe this was heart failure related. Suggest scheduled lasix for this patient. Stopped scheduled neb therapy. Will give IV lasix again today and then defer to primary team for further therapy now and at discharge. Will sign off. Call if questions. 01/24/22: hold on lasix today. Repeat CXR tomorrow. If completely resolved doubt those infiltrates were infection related and may have been unilateral pulmonary edema. Echo showed no issues with heart valves per report. Will continue to follow. 01/23/22: Ordered repeat CXR today, pending results of that may consider another dose of IV lasix. Abx therapy has been discontinued by primary team. If effusions still present on repeat CXR, would still suggest thora. 01/22/22: Will give lasix 20mg IV x1 today given diastolic dysfunction seen on echo. Repeat CXR tomorrow. Spoke with Rads, not able to reach any family to obtain consent to get thora. Continue abx therapy. 01/21/22: Hopeful thora can be done. Follow up echo 01/20/22: Suggest echo, will order. Will also order US guided thoracentesis with labs. Repeat CXR post thora. Disposition: 01 HOME / SELF CARE / HOMELESS Final Discharge Diagnosis (Prints w/discharge instructions): Acute hypoxic respiratory failure, acute on chronic diastolic heart failure, bilateral pleural effusion, pulmonary edema, insulin-dependent diabetes mellitus, hypertension, seizure disorder, BPH, moderate protein calorie malnutrition Core Measure Documentation - Palliative Care Palliative Care/ Comfort Measures: Not Applicable - Core Measures Any of the following diagnoses?: none Exam - Constitutional Vitals: Temp Pulse Resp BP Pulse Ox 98.0 F 59 L 20 159/66 100 01/26/22 05:23 01/26/22 10:34 01/26/22 05:23 01/26/22 10:34 01/26/22 05:23 General appearance: Present: no acute distress, well-nourished - EENT Eyes: Present: PERRL ENT: hearing intact, clear oral mucosa - Neck Neck: Present: supple, normal ROM - Respiratory Respiratory effort: normal Respiratory: bilateral: CTA - Cardiovascular Heart Sounds: Present: S1 & S2. Absent: rub, click - Extremities Extremities: pulses symmetrical, No edema Peripheral Pulses: within normal limits - Abdominal General gastrointestinal: Present: soft, non-tender, non-distended, normal bowel sounds Male genitourinary: Present: normal - Integumentary Integumentary: Present: clear, warm, dry - Musculoskeletal Musculoskeletal: gait normal, strength equal bilaterally - Psychiatric Psychiatric: appropriate mood/affect, intact judgment & insight - Neurologic Neurologic: CNII-XII intact, moves all extremities Plan Activity: advance as tolerated Weight Bearing Status: Weight Bear as Tolerated Diet: low fat, low cholesterol, low salt Follow up with: PRIMARY CARE, [Primary Care Provider] - 7 Days Prescriptions: Furosemide [Lasix] 20 mg PO QDAY #30 tablet
[2022-01-26 17:07] VITALS: BP 148/60
== END 2022-01-26 20:00 | disposition home health service (06) | DRG 189 ==
LOC: ED 10:20 → EEVIPCON 10:20 → 3A 16:36
PROVIDERS: ADMIT Internal Medicine; ATTEND Hospitalist
DX: J96.01 Acute respiratory failure with hypoxia (principal); I50.33 Acute on chronic diastolic (congestive) heart failure; E44.0 Moderate protein-calorie malnutrition; J91.8 Pleural effusion in other conditions classified elsewhere; I11.0 Hypertensive heart disease with heart failure; N40.0 Benign prostatic hyperplasia without lower urinary tract symptoms; E11.9 Type 2 diabetes mellitus without complications; G40.909 Epilepsy, unspecified, not intractable, without status epilepticus; K21.9 Gastro-esophageal reflux disease without esophagitis; M19.90 Unspecified osteoarthritis, unspecified site; Z68.22 Body mass index [BMI] 22.0-22.9, adult; I25.10 Atherosclerotic heart disease of native coronary artery without angina pectoris; E78.5 Hyperlipidemia, unspecified; Z79.4 Long term (current) use of insulin; Z79.899 Other long term (current) drug therapy; Z86.73 Personal history of transient ischemic attack (TIA), and cerebral infarction without residual deficits; I25.2 Old myocardial infarction; Z88.0 Allergy status to penicillin; Z82.49 Family history of ischemic heart disease and other diseases of the circulatory system; Z87.891 Personal history of nicotine dependence
CPT/HCPCS: 36415; 71045; 71250; 80053; 80076; 82140; 82962; 83615; 83735; 83880; 84484; 85007; 85025; 87040; 87205; 93005; 93306; 94640; 99285; G0378; J3490; Q0177; Q9967; C8929; J0456; J0696; J1815; J1940; J1956; J2930; J3370